=== PATIENT | female | born 1940 | race Caucasian/White ===

== ENCOUNTER 2017-05-16 09:25 | Inpatient (IN) | payer MEDICARE ==
[~2017-05-16] VITALS: Ht 165.1 cm; Wt 40.8 kg
[~2017-05-16 09:25] MED LIST: ASPI81CH PO; ATORVASTATIN CA10 MG PO; CLOP75 PO; CYCL10 PO; Hydrocodone-Ap1 EA23 PO; LISI20 PO; LISI5 PO; LOVA40; METO50 PO; Norco 5-325 Ta1 EACH PO; Ultram50 MG PO
[2017-05-16] MEDS ORDERED: ASPI81CH PO (09:54)
[2017-05-16] MEDS ORDERED: MAGOXI400 PO (09:54)
[2017-05-16] MEDS ORDERED: CHOL10002 PO (09:58)
[2017-05-16 09:59] LABS: BASOPHILS ABSOLUTE AUTO 0.03 K/mm3 (0.00-0.23); BASOPHILS PERCENT AUTO 0 % (0-2); EOSINOPHILS ABSOLUTE AUTO 0.03 K/mm3 (0.00-0.68); EOSINOPHILS PERCENT AUTO 0 % (0-6); Hematocrit 38.8 % (33.0-51.0); IMMATURE GRAN ABSOLUTE AUTO 0.08 K/mm3 (0.00-0.10); IMMATURE GRAN PERCENT AUTO 1 % (0-1); LYMPHOCYTES ABSOLUTE AUTO 1.34 K/mm3 (0.84-5.20); LYMPHOCYTES PERCENT AUTO 11 % (21-46); MONOCYTES ABSOLUTE AUTO 1.64 K/mm3 (0.16-1.47); MONOCYTES PERCENT AUTO 13 % (4-13); Mean Corpuscular HGB 32.2 pg (26.0-34.0); Mean Corpuscular HGB Conc 33.5 g/dL (31.5-36.5); Mean Corpuscular Volume 96 fL (80-100); NEUTROPHILS PERCENT AUTO 76 % (41-73); Platelet Count 373 K/mm3 (150-400); RDW Coefficient Variation 12.8 % (11.7-14.2); RDW Standard Deviation 45.8 fL (35.1-46.3); Red Blood Cell Count 4.04 M/mm3 (3.80-5.20); White Blood Cell Count 12.72 K/mm3 (4.00-11.30)
[2017-05-16 10:15] LABS: Alanine Aminotransfer (ALT/SGP 11 U/L (12-78); Albumin, Blood 2.9 g/dL (3.4-5.0); Albumin/Globulin Ratio 0.6 (0.8-1.8); Alk Phos 74 U/L (50-136); Anion Gap 10 mmol/L (6-16); Aspartate Aminotrans (AST/SGOT 16 U/L (12-37); Blood Urea Nitrogen 24 mg/dL (8-24); Bun/Creatinine Ratio 29.1 (12.0-20.0); CO2, Blood 30 mmol/L (21-32); Calcium, Blood 9.3 mg/dL (8.5-10.1); Chloride, Blood 87 mmol/L (98-108); Creatinine, Blood 0.83 mg/dL (0.40-1.00); Globulin, Blood 4.6 g/dL (2.2-4.0); Glomerular Filtration Rate >60 (60-); Glucose, Blood 121 mg/dL (70-99); Potassium, Blood 4.2 mmol/L (3.5-5.5); Sodium, Blood 127 mmol/L (136-145); Total Protein, Blood 7.5 g/dL (6.4-8.2); Troponin I <0.015 ng/mL (0.000-0.040)
[2017-05-16] MEDS ORDERED: Hair, Skin & N1 EACH PO (16:16)
[2017-05-16] MEDS ORDERED: CALCIUM 500 +1 EAC4 PO (16:20)
[2017-05-17 02:39] LABS: Source, Urine Voided
[2017-05-17 02:41] LABS: Bilirubin, Urine Neg (Neg); Blood, Urine Neg (Neg); Glucose Qualitative, Urine Neg (Neg); Ketones, Urine 1+ (Neg); Leukocyte Esterase, Urine 1+ (Neg); Nitrite, Urine Neg (Neg); Protein, Urine Neg (Neg); Urobilinogen, Urine NORM (Normal)
[2017-05-17 02:42] LABS: Appearance, Urine Clear (Clear); Color, Urine Yellow (P-Yellow)
[2017-05-17 02:47] LABS: Bacteria Few /hpf; Red Blood Cells, Urine Not Seen /hpf (0-2); Squamous Epithelial Cells Rare /hpf (Few)
[2017-05-17 06:28] LABS: BASOPHILS ABSOLUTE AUTO 0.02 K/mm3 (0.00-0.23); BASOPHILS PERCENT AUTO 0 % (0-2); EOSINOPHILS ABSOLUTE AUTO 0.19 K/mm3 (0.00-0.68); EOSINOPHILS PERCENT AUTO 2 % (0-6); Hematocrit 35.3 % (33.0-51.0); Hemoglobin 11.4 g/dL (11.5-16.0); IMMATURE GRAN ABSOLUTE AUTO 0.05 K/mm3 (0.00-0.10); IMMATURE GRAN PERCENT AUTO 1 % (0-1); LYMPHOCYTES ABSOLUTE AUTO 1.27 K/mm3 (0.84-5.20); LYMPHOCYTES PERCENT AUTO 16 % (21-46); MONOCYTES ABSOLUTE AUTO 1.09 K/mm3 (0.16-1.47); MONOCYTES PERCENT AUTO 13 % (4-13); Mean Corpuscular HGB 31.6 pg (26.0-34.0); Mean Corpuscular HGB Conc 32.3 g/dL (31.5-36.5); Mean Corpuscular Volume 98 fL (80-100); Mean Platelet Volume 9.2 fL (9.1-12.4); NEUTROPHILS ABSOLUTE AUTO 5.56 K/mm3 (1.96-9.15); NEUTROPHILS PERCENT AUTO 68 % (41-73); Platelet Count 310 K/mm3 (150-400); RDW Standard Deviation 47.1 fL (35.1-46.3); Red Blood Cell Count 3.61 M/mm3 (3.80-5.20); White Blood Cell Count 8.18 K/mm3 (4.00-11.30)
[2017-05-17 07:04] LABS: Alanine Aminotransfer (ALT/SGP 10 U/L (12-78); Albumin/Globulin Ratio 0.5 (0.8-1.8); Alk Phos 59 U/L (50-136); Anion Gap 6 mmol/L (6-16); Aspartate Aminotrans (AST/SGOT 15 U/L (12-37); Bilirubin, Total 0.2 mg/dL (0.1-1.0); Blood Urea Nitrogen 19 mg/dL (8-24); Bun/Creatinine Ratio 26.2 (12.0-20.0); CO2, Blood 30 mmol/L (21-32); Chloride, Blood 99 mmol/L (98-108); Creatinine, Blood 0.72 mg/dL (0.40-1.00); Globulin, Blood 3.9 g/dL (2.2-4.0); Glomerular Filtration Rate >60 (60-); Glucose, Blood 144 mg/dL (70-99); Potassium, Blood 3.7 mmol/L (3.5-5.5); Sodium, Blood 135 mmol/L (136-145); Total Protein, Blood 5.9 g/dL (6.4-8.2)
[2017-05-18 05:47] LABS: BASOPHILS ABSOLUTE AUTO 0.03 K/mm3 (0.00-0.23); BASOPHILS PERCENT AUTO 0 % (0-2); EOSINOPHILS ABSOLUTE AUTO 0.29 K/mm3 (0.00-0.68); EOSINOPHILS PERCENT AUTO 4 % (0-6); Hematocrit 32.3 % (33.0-51.0); Hemoglobin 10.3 g/dL (11.5-16.0); IMMATURE GRAN ABSOLUTE AUTO 0.04 K/mm3 (0.00-0.10); IMMATURE GRAN PERCENT AUTO 1 % (0-1); LYMPHOCYTES ABSOLUTE AUTO 1.44 K/mm3 (0.84-5.20); LYMPHOCYTES PERCENT AUTO 20 % (21-46); MONOCYTES ABSOLUTE AUTO 0.77 K/mm3 (0.16-1.47); MONOCYTES PERCENT AUTO 11 % (4-13); Mean Corpuscular HGB 31.7 pg (26.0-34.0); Mean Corpuscular HGB Conc 31.9 g/dL (31.5-36.5); Mean Corpuscular Volume 99 fL (80-100); Mean Platelet Volume 8.9 fL (9.1-12.4); NEUTROPHILS ABSOLUTE AUTO 4.77 K/mm3 (1.96-9.15); NEUTROPHILS PERCENT AUTO 65 % (41-73); Platelet Count 277 K/mm3 (150-400); RDW Standard Deviation 47.4 fL (35.1-46.3); Red Blood Cell Count 3.25 M/mm3 (3.80-5.20); White Blood Cell Count 7.34 K/mm3 (4.00-11.30)
[2017-05-18 06:11] LABS: Magnesium, Blood 1.5 mg/dL (1.6-2.4)
[2017-05-18 06:18] LABS: Anion Gap 4 mmol/L (6-16); Blood Urea Nitrogen 11 mg/dL (8-24); Bun/Creatinine Ratio 14.5 (12.0-20.0); CO2, Blood 31 mmol/L (21-32); Chloride, Blood 104 mmol/L (98-108); Creatinine, Blood 0.76 mg/dL (0.40-1.00); Glomerular Filtration Rate >60 (60-); Glucose, Blood 94 mg/dL (70-99); Potassium, Blood 4.1 mmol/L (3.5-5.5); Sodium, Blood 139 mmol/L (136-145)
[2017-05-19 05:15] LABS: BASOPHILS ABSOLUTE AUTO 0.02 K/mm3 (0.00-0.23); BASOPHILS PERCENT AUTO 0 % (0-2); EOSINOPHILS ABSOLUTE AUTO 0.33 K/mm3 (0.00-0.68); EOSINOPHILS PERCENT AUTO 4 % (0-6); Hematocrit 33.8 % (33.0-51.0); Hemoglobin 10.9 g/dL (11.5-16.0); IMMATURE GRAN ABSOLUTE AUTO 0.05 K/mm3 (0.00-0.10); IMMATURE GRAN PERCENT AUTO 1 % (0-1); LYMPHOCYTES PERCENT AUTO 20 % (21-46); MONOCYTES PERCENT AUTO 9 % (4-13); Mean Corpuscular HGB Conc 32.2 g/dL (31.5-36.5); Mean Corpuscular Volume 99 fL (80-100); Mean Platelet Volume 9.1 fL (9.1-12.4); NEUTROPHILS ABSOLUTE AUTO 4.82 K/mm3 (1.96-9.15); NEUTROPHILS PERCENT AUTO 65 % (41-73); Platelet Count 317 K/mm3 (150-400); RDW Standard Deviation 47.1 fL (35.1-46.3); Red Blood Cell Count 3.41 M/mm3 (3.80-5.20); White Blood Cell Count 7.42 K/mm3 (4.00-11.30)
[2017-05-19 05:34] LABS: Anion Gap 2 mmol/L (6-16); Blood Urea Nitrogen 12 mg/dL (8-24); Bun/Creatinine Ratio 17.9 (12.0-20.0); CO2, Blood 34 mmol/L (21-32); Calcium, Blood 8.5 mg/dL (8.5-10.1); Chloride, Blood 102 mmol/L (98-108); Creatinine, Blood 0.67 mg/dL (0.40-1.00); Glomerular Filtration Rate >60 (60-); Glucose, Blood 96 mg/dL (70-99); Magnesium, Blood 1.7 mg/dL (1.6-2.4); Sodium, Blood 138 mmol/L (136-145)
[2017-05-19] MEDS ORDERED: ALBU90OI INH (14:09)
[2017-05-19] MEDS ORDERED: LEVO750 PO (14:09)
[2017-05-19] MEDS ORDERED: DULERA 100 MCG/13 GM INH (14:10)
[2017-05-19] MEDS ORDERED: FAMO20 PO (14:13)
[2017-05-19] MEDS ORDERED: GUAI600T33 PO (14:13)
[2017-05-19] MEDS ORDERED: ERGO400 PO (14:14)
== END 2017-05-19 14:31 | disposition home or self-care (01) | DRG 205 ==
LOC: ER 09:25 → MEDS 12:06 → ENPENDDIS 05-19 10:30 → MEDS 05-19 14:31
PROVIDERS: Emergency Medicine; Internal Medicine
DX: J98.19 Other pulmonary collapse (principal); J18.1 Lobar pneumonia, unspecified organism; G93.41 Metabolic encephalopathy; I11.0 Hypertensive heart disease with heart failure; I50.30 Unspecified diastolic (congestive) heart failure; Z99.81 Dependence on supplemental oxygen; J90 Pleural effusion, not elsewhere classified; E87.1 Hypo-osmolality and hyponatremia; J44.9 Chronic obstructive pulmonary disease, unspecified; F17.211 Nicotine dependence, cigarettes, in remission; I25.10 Atherosclerotic heart disease of native coronary artery without angina pectoris; R41.82 Altered mental status, unspecified; Z79.82 Long term (current) use of aspirin
CPT/HCPCS: 36415; 71045; 71046; 71260; 80048; 80053; 81001; 83520; 83735; 84484; 85025; 87070; 87086; 87205; 87449; 87493; 93005; 93010; 94640; 94667; 94668; 94760; 96361; 96365; 99285; J0456; J0696; J1650; J3475; J7030; J7050; Q9967

== ENCOUNTER 2017-12-30 06:25 | Inpatient (IN) | payer MEDICARE ==
[~2017-12-30] VITALS: Ht 157.5 cm; Wt 45.2 kg
[~2017-12-30 06:25] MED LIST changes: +ALBU90OI INH; +CALCIUM 500 +1 EAC4 PO; +CHOL10002 PO; +DULERA 100 MCG/13 GM INH; +ERGO400 PO; +FAMO20 PO; +GUAI600T33 PO; +Hair, Skin & N1 EACH PO; +LEVO750 PO; +MAGOXI400 PO
[2017-12-30 06:45] LABS: Calcium, Ionized (POC) 1.18 mmol/L (1.10-1.46); Chloride (POC) 90 mmol/L (98-108); Glucose (ISTAT POC) 250 mg/dL (70-99); Hemoglobin (POC) 15.6 g/dL (12.0-16.0); Potassium (POC) 4.7 mmol/L (3.5-5.5); Sodium (POC) 132 mmol/L (135-148); Total CO2 (POC) 36 mmol/L (21-32)
[2017-12-30 06:52] LABS: Source, Urine Catheter
[2017-12-30 07:03] LABS: BASOPHILS ABSOLUTE AUTO 0.07 K/mm3 (0.00-0.23); BASOPHILS PERCENT AUTO 0 % (0-2); EOSINOPHILS ABSOLUTE AUTO 0.15 K/mm3 (0.00-0.68); EOSINOPHILS PERCENT AUTO 1 % (0-6); Hematocrit 44.7 % (33.0-51.0); Hemoglobin 14.2 g/dL (11.5-16.0); IMMATURE GRAN ABSOLUTE AUTO 0.11 K/mm3 (0.00-0.10); IMMATURE GRAN PERCENT AUTO 1 % (0-1); LYMPHOCYTES ABSOLUTE AUTO 3.35 K/mm3 (0.84-5.20); LYMPHOCYTES PERCENT AUTO 21 % (21-46); MONOCYTES PERCENT AUTO 9 % (4-13); Mean Corpuscular HGB 32.5 pg (26.0-34.0); Mean Corpuscular HGB Conc 31.8 g/dL (31.5-36.5); Mean Corpuscular Volume 102 fL (80-100); Mean Platelet Volume 9.3 fL (9.1-12.4); NEUTROPHILS PERCENT AUTO 68 % (41-73); Platelet Count 243 K/mm3 (150-400); RDW Coefficient Variation 12.5 % (11.7-14.2); RDW Standard Deviation 47.4 fL (35.1-46.3); Red Blood Cell Count 4.37 M/mm3 (3.80-5.20); White Blood Cell Count 15.98 K/mm3 (4.00-11.30)
[2017-12-30 07:19] LABS: Alanine Aminotransfer (ALT/SGP 33 U/L (12-78); Albumin, Blood 3.6 g/dL (3.4-5.0); Albumin/Globulin Ratio 0.9 (0.8-1.8); Alk Phos 69 U/L (50-136); Anion Gap 4 mmol/L (6-16); Aspartate Aminotrans (AST/SGOT 49 U/L (12-37); Bilirubin, Total 0.6 mg/dL (0.1-1.0); Blood Urea Nitrogen 17 mg/dL (8-24); Bun/Creatinine Ratio 18.1 (12.0-20.0); CO2, Blood 37 mmol/L (21-32); Calcium, Blood 8.8 mg/dL (8.5-10.1); Chloride, Blood 92 mmol/L (98-108); Creatinine, Blood 0.94 mg/dL (0.40-1.00); Globulin, Blood 3.8 g/dL (2.2-4.0); Glomerular Filtration Rate >60 (60-); Glucose, Blood 252 mg/dL (70-99); Potassium, Blood 5.2 mmol/L (3.5-5.5); Sodium, Blood 133 mmol/L (136-145); Total Protein, Blood 7.4 g/dL (6.4-8.2); Troponin I 0.017 ng/mL (0.000-0.040)
[2017-12-30 07:29] LABS: Bilirubin, Urine Neg (Neg); Blood, Urine Neg (Neg); Glucose Qualitative, Urine 1+ (Neg); Ketones, Urine Neg (Neg); Leukocyte Esterase, Urine Neg (Neg); Nitrite, Urine Neg (Neg); Protein, Urine 2+ (Neg); Specific Gravity, Urine 1.025 (1.003-1.022); Urobilinogen, Urine NORM (Normal)
[2017-12-30 07:40] LABS: Appearance, Urine Hazy (Clear); Color, Urine Yellow (P-Yellow)
[2017-12-30 07:45] LABS: Bacteria Mod /hpf; Red Blood Cells, Urine 0-2 /hpf (0-2); Squamous Epithelial Cells Many /hpf (Few)
[2017-12-30 07:47] LABS: Amorphous Mod (0-Heavy)
[2017-12-30 07:58] LABS: PCO2 Arterial 61.2 mmHg (35-45); PO2 Arterial 68.4 mmHg (80-100); pH Blood Arterial 7.33 (7.35-7.45)
[2017-12-30] MEDS ORDERED: ASPI81CH PO (08:03)
[2017-12-30] MEDS ORDERED: MAGOXI400 PO (08:04)
[2017-12-30] MEDS ORDERED: METO50 PO (08:04)
[2017-12-30] MEDS ORDERED: Hair, Skin & N1 EACH PO (08:05)
[2017-12-30] MEDS ORDERED: CHOL10002 (08:06)
[2017-12-30] MEDS ORDERED: Allergy Medicat25 MG PO (08:10)
[2017-12-30] MEDS ORDERED: COMBIVENT RESPIM4 GM INH (08:11)
[2017-12-30] MEDS ORDERED: BUDE.25 NEB (08:11)
[2017-12-30 08:34] LABS: Influenza A Negative (NEGATIVE); Influenza B Negative (NEGATIVE)
[2017-12-30] MEDS ORDERED: MONT10T PO (09:10)
[2017-12-30] MEDS ORDERED: LISI20 PO (09:10)
[2017-12-30] MEDS ORDERED: FAMO20 PO (09:10)
[2017-12-31 02:13] LABS: BASOPHILS PERCENT AUTO 0 % (0-2); EOSINOPHILS PERCENT AUTO 0 % (0-6); Hematocrit 33.8 % (33.0-51.0); Hemoglobin 11.3 g/dL (11.5-16.0); IMMATURE GRAN ABSOLUTE AUTO 0.03 K/mm3 (0.00-0.10); IMMATURE GRAN PERCENT AUTO 0 % (0-1); LYMPHOCYTES ABSOLUTE AUTO 0.27 K/mm3 (0.84-5.20); LYMPHOCYTES PERCENT AUTO 3 % (21-46); MONOCYTES ABSOLUTE AUTO 0.25 K/mm3 (0.16-1.47); MONOCYTES PERCENT AUTO 3 % (4-13); Mean Corpuscular HGB 33.2 pg (26.0-34.0); Mean Corpuscular HGB Conc 33.4 g/dL (31.5-36.5); NEUTROPHILS ABSOLUTE AUTO 7.52 K/mm3 (1.96-9.15); NEUTROPHILS PERCENT AUTO 93 % (41-73); Platelet Count 141 K/mm3 (150-400); RDW Coefficient Variation 12.6 % (11.7-14.2); White Blood Cell Count 8.07 K/mm3 (4.00-11.30)
[2017-12-31 02:15] LABS: Mean Corpuscular Volume 99 fL (80-100)
[2017-12-31 02:31] LABS: Alanine Aminotransfer (ALT/SGP 23 U/L (12-78); Albumin, Blood 2.8 g/dL (3.4-5.0); Alk Phos 45 U/L (50-136); Anion Gap 15 mmol/L (6-16); Aspartate Aminotrans (AST/SGOT 29 U/L (12-37); Bilirubin, Total 0.2 mg/dL (0.1-1.0); Blood Urea Nitrogen 18 mg/dL (8-24); Bun/Creatinine Ratio 21.7 (12.0-20.0); CO2, Blood 24 mmol/L (21-32); Calcium, Blood 7.9 mg/dL (8.5-10.1); Chloride, Blood 98 mmol/L (98-108); Creatinine, Blood 0.83 mg/dL (0.40-1.00); Globulin, Blood 2.9 g/dL (2.2-4.0); Glomerular Filtration Rate >60 (60-); Glucose, Blood 168 mg/dL (70-99); Magnesium, Blood 1.9 mg/dL (1.6-2.4); Phosphorus, Blood 2.2 mg/dL (2.5-4.9); Potassium, Blood 3.6 mmol/L (3.5-5.5); Sodium, Blood 137 mmol/L (136-145); Total Protein, Blood 5.7 g/dL (6.4-8.2)
[2017-12-31 05:44] LABS: PO2 Arterial 87.2 mmHg (80-100); pH Blood Arterial 7.33 (7.35-7.45)
[2018-01-01 03:53] LABS: BASOPHILS ABSOLUTE AUTO 0.01 K/mm3 (0.00-0.23); BASOPHILS PERCENT AUTO 0 % (0-2); EOSINOPHILS PERCENT AUTO 0 % (0-6); Hematocrit 36.5 % (33.0-51.0); Hemoglobin 12.7 g/dL (11.5-16.0); IMMATURE GRAN PERCENT AUTO 2 % (0-1); LYMPHOCYTES ABSOLUTE AUTO 0.21 K/mm3 (0.84-5.20); LYMPHOCYTES PERCENT AUTO 1 % (21-46); MONOCYTES ABSOLUTE AUTO 0.54 K/mm3 (0.16-1.47); MONOCYTES PERCENT AUTO 3 % (4-13); Mean Corpuscular HGB 33.5 pg (26.0-34.0); Mean Corpuscular HGB Conc 34.8 g/dL (31.5-36.5); Mean Platelet Volume 9.1 fL (9.1-12.4); NEUTROPHILS ABSOLUTE AUTO 15.14 K/mm3 (1.96-9.15); NEUTROPHILS PERCENT AUTO 93 % (41-73); Platelet Count 170 K/mm3 (150-400); RDW Coefficient Variation 13.1 % (11.7-14.2); RDW Standard Deviation 46.7 fL (35.1-46.3); Red Blood Cell Count 3.79 M/mm3 (3.80-5.20)
[2018-01-01 03:55] LABS: Mean Corpuscular Volume 96 fL (80-100)
[2018-01-01 04:11] LABS: Alanine Aminotransfer (ALT/SGP 23 U/L (12-78); Albumin, Blood 2.9 g/dL (3.4-5.0); Albumin/Globulin Ratio 0.9 (0.8-1.8); Alk Phos 49 U/L (50-136); Anion Gap 8 mmol/L (6-16); Aspartate Aminotrans (AST/SGOT 28 U/L (12-37); Bilirubin, Total 0.4 mg/dL (0.1-1.0); Blood Urea Nitrogen 23 mg/dL (8-24); Bun/Creatinine Ratio 27.8 (12.0-20.0); CO2, Blood 29 mmol/L (21-32); Calcium, Blood 8.1 mg/dL (8.5-10.1); Chloride, Blood 99 mmol/L (98-108); Creatinine, Blood 0.83 mg/dL (0.40-1.00); Globulin, Blood 3.3 g/dL (2.2-4.0); Glomerular Filtration Rate >60 (60-); Glucose, Blood 175 mg/dL (70-99); Phosphorus, Blood 2.5 mg/dL (2.5-4.9); Potassium, Blood 4.3 mmol/L (3.5-5.5); Sodium, Blood 136 mmol/L (136-145); Total Protein, Blood 6.2 g/dL (6.4-8.2)
[2018-01-03 05:27] LABS: BASOPHILS ABSOLUTE AUTO 0.02 K/mm3 (0.00-0.23); BASOPHILS PERCENT AUTO 0 % (0-2); EOSINOPHILS PERCENT AUTO 0 % (0-6); Hematocrit 37.3 % (33.0-51.0); Hemoglobin 12.5 g/dL (11.5-16.0); IMMATURE GRAN ABSOLUTE AUTO 0.12 K/mm3 (0.00-0.10); IMMATURE GRAN PERCENT AUTO 1 % (0-1); LYMPHOCYTES ABSOLUTE AUTO 0.41 K/mm3 (0.84-5.20); LYMPHOCYTES PERCENT AUTO 2 % (21-46); MONOCYTES ABSOLUTE AUTO 0.83 K/mm3 (0.16-1.47); MONOCYTES PERCENT AUTO 5 % (4-13); Mean Corpuscular HGB 33.3 pg (26.0-34.0); Mean Corpuscular HGB Conc 33.5 g/dL (31.5-36.5); Mean Platelet Volume 9.2 fL (9.1-12.4); NEUTROPHILS ABSOLUTE AUTO 17.12 K/mm3 (1.96-9.15); NEUTROPHILS PERCENT AUTO 93 % (41-73); Platelet Count 197 K/mm3 (150-400); RDW Coefficient Variation 13.2 % (11.7-14.2); RDW Standard Deviation 48.7 fL (35.1-46.3); Red Blood Cell Count 3.75 M/mm3 (3.80-5.20)
[2018-01-03 05:28] LABS: Mean Corpuscular Volume 100 fL (80-100)
[2018-01-03 05:49] LABS: Alanine Aminotransfer (ALT/SGP 31 U/L (12-78); Albumin, Blood 2.8 g/dL (3.4-5.0); Alk Phos 46 U/L (50-136); Anion Gap 6 mmol/L (6-16); Aspartate Aminotrans (AST/SGOT 33 U/L (12-37); Bilirubin, Total 0.3 mg/dL (0.1-1.0); Blood Urea Nitrogen 27 mg/dL (8-24); Bun/Creatinine Ratio 35.2 (12.0-20.0); CO2, Blood 32 mmol/L (21-32); Calcium, Blood 8.2 mg/dL (8.5-10.1); Chloride, Blood 99 mmol/L (98-108); Creatinine, Blood 0.77 mg/dL (0.40-1.00); Globulin, Blood 2.9 g/dL (2.2-4.0); Glomerular Filtration Rate >60 (60-); Glucose, Blood 142 mg/dL (70-99); Potassium, Blood 4.7 mmol/L (3.5-5.5); Sodium, Blood 137 mmol/L (136-145); Total Protein, Blood 5.7 g/dL (6.4-8.2)
[2018-01-05 05:23] LABS: Hemoglobin 12.2 g/dL (11.5-16.0); Mean Corpuscular HGB 32.9 pg (26.0-34.0); Mean Corpuscular Volume 100 fL (80-100); Mean Platelet Volume 9.2 fL (9.1-12.4); Platelet Count 200 K/mm3 (150-400); RDW Coefficient Variation 12.9 % (11.7-14.2); RDW Standard Deviation 47.3 fL (35.1-46.3); Red Blood Cell Count 3.71 M/mm3 (3.80-5.20); White Blood Cell Count 8.85 K/mm3 (4.00-11.30)
[2018-01-05 05:44] LABS: Alanine Aminotransfer (ALT/SGP 47 U/L (12-78); Albumin, Blood 2.7 g/dL (3.4-5.0); Alk Phos 42 U/L (50-136); Anion Gap 4 mmol/L (6-16); Aspartate Aminotrans (AST/SGOT 34 U/L (12-37); Bilirubin, Total 0.4 mg/dL (0.1-1.0); Blood Urea Nitrogen 22 mg/dL (8-24); Bun/Creatinine Ratio 27.4 (12.0-20.0); CO2, Blood 37 mmol/L (21-32); Calcium, Blood 8.4 mg/dL (8.5-10.1); Chloride, Blood 98 mmol/L (98-108); Globulin, Blood 2.8 g/dL (2.2-4.0); Glomerular Filtration Rate >60 (60-); Glucose, Blood 88 mg/dL (70-99); Sodium, Blood 139 mmol/L (136-145); Total Protein, Blood 5.5 g/dL (6.4-8.2)
[2018-01-06] MEDS ORDERED: DOCU100 PO (12:16)
[2018-01-06] MEDS ORDERED: FOLI1 PO (12:16)
[2018-01-06] MEDS ORDERED: Prednisone20 MG PO (12:17)
[2018-01-06] MEDS ORDERED: QUETIAPINE FUMA50 MG PO (12:18)
[2018-01-06] MEDS ORDERED: THIA100 PO (12:19)
[2018-01-06] MEDS ORDERED: ALUM-MAG HYDRO360 ML PO (12:21)
[2018-01-06] MEDS ORDERED: GAVILAX17 GM PO (12:21)
== END 2018-01-06 13:07 | disposition home or self-care (01) | DRG 871 ==
LOC: ER 06:25 → ICUW 09:49 → ICUE 10:11 → PCU 01-03 09:02 → MEDS 01-04 16:29 → ENPENDDIS 01-06 10:57 → MEDS 01-06 13:07
PROVIDERS: Emergency Medicine; Internal Medicine; Internal Medicine Critical Care Medicine; Internal Medicine Pulmonary Disease
PROC: 0BH17EZ Insertion of Endotracheal Airway into Trachea, Via Natural or Artificial Opening (ICD-10-PCS; principal; 2017-12-30)
PROC: 5A1945Z Respiratory Ventilation, 24-96 Consecutive Hours (ICD-10-PCS; 2017-12-30)
DX: A41.9 Sepsis, unspecified organism (principal); G93.41 Metabolic encephalopathy; J96.22 Acute and chronic respiratory failure with hypercapnia; J96.21 Acute and chronic respiratory failure with hypoxia; E87.1 Hypo-osmolality and hyponatremia; J44.0 Chronic obstructive pulmonary disease with (acute) lower respiratory infection; K55.9 Vascular disorder of intestine, unspecified; F03.91 Unspecified dementia, unspecified severity, with behavioral disturbance; F05 Delirium due to known physiological condition; J44.1 Chronic obstructive pulmonary disease with (acute) exacerbation; E87.8 Other disorders of electrolyte and fluid balance, not elsewhere classified; I10 Essential (primary) hypertension; I25.10 Atherosclerotic heart disease of native coronary artery without angina pectoris; R65.20 Severe sepsis without septic shock; E78.5 Hyperlipidemia, unspecified; Z87.01 Personal history of pneumonia (recurrent); R73.9 Hyperglycemia, unspecified; F10.20 Alcohol dependence, uncomplicated; Z98.61 Coronary angioplasty status; Z87.891 Personal history of nicotine dependence; I73.9 Peripheral vascular disease, unspecified; J43.9 Emphysema, unspecified; K59.00 Constipation, unspecified; L89.151 Pressure ulcer of sacral region, stage 1
CPT/HCPCS: 31500; 31720; 36415; 36600; 51702; 70450; 71045; 74177; 76857; 80047; 80053; 81001; 82803; 82947; 83735; 83880; 84100; 84484; 85014; 85025; 85027; 87070; 87086; 87205; 87804; 93005; 93010; 93306; 94002; 94003; 94640; 94644; 94660; 94760; 94761; 96374; 96375; 97110; 97162; 97166; 97530; 99291-25; 99292; C9113; G8978; G8979; G8987; G8988; J0330; J0360; J0456; J0696; J1650; J2060; J2920; J2930; J3010; J3411; J3475; J7030; J7042; J7050; J7060; J7120; Q9967

== ENCOUNTER 2020-11-02 18:24 | Inpatient (IN) | payer OTHER, MEDICARE ==
[~2020-11-02] VITALS: Ht 160 cm; Wt 43.8 kg
[~2020-11-02 18:24] MED LIST changes: +ALUM-MAG HYDRO360 ML PO; +Allergy Medicat25 MG PO; +Aspir 8181 MG PO; +BUDE.25 NEB; +COMBIVENT RESPIM4 GM INH; +DOCU100 PO; +FOLI1 PO; +MIRALAX17 GM PO; +MONT10T PO; +Prednisone20 MG PO; +QUETIAPINE FUMA50 MG PO; +THIA100 PO; +VITAMIN D31000 UNI1 PO
[2020-11-02 19:07] LABS: BASOPHILS ABSOLUTE AUTO 0.04 K/mm3 (0.00-0.23); BASOPHILS PERCENT AUTO 0 % (0-2); EOSINOPHILS PERCENT AUTO 1 % (0-6); Hematocrit 39.1 % (33.0-51.0); Hemoglobin 12.8 g/dL (11.5-16.0); IMMATURE GRAN ABSOLUTE AUTO 0.04 K/mm3 (0.00-0.10); IMMATURE GRAN PERCENT AUTO 0 % (0-1); LYMPHOCYTES ABSOLUTE AUTO 1.72 K/mm3 (0.84-5.20); LYMPHOCYTES PERCENT AUTO 19 % (21-46); MONOCYTES ABSOLUTE AUTO 1.39 K/mm3 (0.16-1.47); MONOCYTES PERCENT AUTO 15 % (4-13); Mean Corpuscular HGB 32.3 pg (26.0-34.0); Mean Corpuscular HGB Conc 32.7 g/dL (31.5-36.5); Mean Corpuscular Volume 99 fL (80-100); Mean Platelet Volume 8.3 fL (9.1-12.4); NEUTROPHILS ABSOLUTE AUTO 5.76 K/mm3 (1.96-9.15); NEUTROPHILS PERCENT AUTO 64 % (41-73); Platelet Count 339 K/mm3 (150-400); RDW Coefficient Variation 13.2 % (11.7-14.2); RDW Standard Deviation 47.9 fL (35.1-46.3); Red Blood Cell Count 3.96 M/mm3 (3.80-5.20); White Blood Cell Count 9.05 K/mm3 (4.00-11.30)
[2020-11-02] MEDS ORDERED: ATOR20 PO (19:12)
[2020-11-02 19:38] LABS: Alanine Aminotransfer (ALT/SGP 14 U/L (12-78); Albumin, Blood 3.2 g/dL (3.4-5.0); Albumin/Globulin Ratio 0.8 (0.8-1.8); Alk Phos 87 U/L (50-136); Anion Gap 2 mmol/L (6-16); Aspartate Aminotrans (AST/SGOT 17 U/L (12-37); Bilirubin, Total 0.4 mg/dL (0.1-1.0); Blood Urea Nitrogen 12 mg/dL (8-24); CO2, Blood 36 mmol/L (21-32); Calcium, Blood 8.9 mg/dL (8.5-10.1); Chloride, Blood 89 mmol/L (98-108); Creatinine, Blood 1.09 mg/dL (0.40-1.00); Globulin, Blood 4.2 g/dL (2.2-4.0); Glomerular Filtration Rate 48 (60-); Glucose, Blood 128 mg/dL (70-99); Potassium, Blood 4.5 mmol/L (3.5-5.5); Sodium, Blood 127 mmol/L (136-145); Total Protein, Blood 7.4 g/dL (6.4-8.2); Troponin I <0.015 ng/mL (0.000-0.040)
[2020-11-02] MEDS ORDERED: Prinivil10 MG PO (21:12)
[2020-11-02] MEDS ORDERED: Ventolin/Prove6.7 GM INH (21:12)
[2020-11-02 21:35] LABS: Base Excess Venous 10.4 mmol/L; Bicarbonate Venous 30.8 mmol/L (24.0-30.0); PCO2 Venous 80.1 mmHg (38-42); pH Blood Venous 7.28 (7.34-7.37)
--- NOTE | 2020-11-03 03:56 | NUR ---
SHIFT SUMMARY PT ER ADMIT THIS SHIFT FOR COPD EXAC. PT ARRIVED TO UNIT ON BIPAP, SATS MAINTAINED WNL ON BIPAP. LUNGS ARE DIMINISHED T/O. PT DENIES SOB. RESP E/U AT REST, SOB WITH EXERTION. IV ANTIBIOTICS, SOLUMEDROL AND FLUIDS ADMINISTERED ORDERED. PT IS A/OX3-4 BUT HAS PERIODS OF FORGETFULNESS AND CONFUSION. PT WILL TALK TO STAFF AND SEEM A/O AND THEN WITHIN A SHORT PERIOD OF TIME SEEM CONFUSED IF SHE IS HAVING A HARD TIME UNDERSTADING THE QUESTIONS BEING ASKED. POOR HISTORIAN A RESULT MOST OF MEDICAL HX PULLED FROM PCI. PT HAS A STAGE 1 PRESSURE SORE TO COCCYX, PICTURE TAKEN AND PLACED IN CHART. VITALS ARE STABLE. ADMISSION COMPLETE ASIDE FROM MED REC, NURSE NOTIFY PLACED FOR DAYSHIFT NURSE FOLLOW UP. BED IN LOWEST POSITION, CALL LIGHT WITHIN REACH. BED IN LOWEST POSITON, CALL LIGHT WITHIN REACH.
[2020-11-03 08:38] LABS: BASOPHILS ABSOLUTE AUTO 0.01 K/mm3 (0.00-0.23); BASOPHILS PERCENT AUTO 0 % (0-2); EOSINOPHILS PERCENT AUTO 0 % (0-6); Hematocrit 39.1 % (33.0-51.0); Hemoglobin 12.6 g/dL (11.5-16.0); IMMATURE GRAN ABSOLUTE AUTO 0.03 K/mm3 (0.00-0.10); IMMATURE GRAN PERCENT AUTO 0 % (0-1); LYMPHOCYTES ABSOLUTE AUTO 0.84 K/mm3 (0.84-5.20); LYMPHOCYTES PERCENT AUTO 11 % (21-46); MONOCYTES ABSOLUTE AUTO 0.05 K/mm3 (0.16-1.47); MONOCYTES PERCENT AUTO 1 % (4-13); Mean Corpuscular HGB 32.5 pg (26.0-34.0); Mean Corpuscular HGB Conc 32.2 g/dL (31.5-36.5); Mean Corpuscular Volume 101 fL (80-100); Mean Platelet Volume 8.5 fL (9.1-12.4); NEUTROPHILS ABSOLUTE AUTO 6.96 K/mm3 (1.96-9.15); NEUTROPHILS PERCENT AUTO 88 % (41-73); Platelet Count 318 K/mm3 (150-400); RDW Coefficient Variation 13.3 % (11.7-14.2); RDW Standard Deviation 49.2 fL (35.1-46.3); Red Blood Cell Count 3.88 M/mm3 (3.80-5.20); White Blood Cell Count 7.89 K/mm3 (4.00-11.30)
[2020-11-03 08:59] LABS: Bun/Creatinine Ratio 11.8 (12.0-20.0); Calcium, Blood 8.4 mg/dL (8.5-10.1); Creatinine, Blood 1.1 mg/dL (0.40-1.00)
[2020-11-03] MEDS ORDERED: AZIT250 PO (14:27)
[2020-11-03] MEDS ORDERED: PRED20 PO (14:29)
--- NOTE | 2020-11-03 17:10 | NUR ---
PT DISCHARGED 1530 WITH PORTABLE O2 TANK FROM [facility] [place] WITH PLAN FOR THEM TO DELIVER A CONCENTRATOR TO THE HOUSE THIS AFTERNOON. GIVEN DC ORDERS. W/C ESCORT OUT TO [facility].
== END 2020-11-03 15:30 | disposition home or self-care (01) | DRG 189 ==
LOC: ER 18:24 → MEDS 20:51
PROVIDERS: Internal Medicine; Physician Assistant; ADMIT Hospitalist
DX: J96.21 Acute and chronic respiratory failure with hypoxia (principal); G93.41 Metabolic encephalopathy; J44.1 Chronic obstructive pulmonary disease with (acute) exacerbation; E22.2 Syndrome of inappropriate secretion of antidiuretic hormone; N17.9 Acute kidney failure, unspecified; E87.3 Alkalosis; I13.0 Hypertensive heart and chronic kidney disease with heart failure and stage 1 through stage 4 chronic kidney disease, or unspecified chronic kidney disease; I50.32 Chronic diastolic (congestive) heart failure; J96.22 Acute and chronic respiratory failure with hypercapnia; J96.11 Chronic respiratory failure with hypoxia; N18.30 Chronic kidney disease, stage 3 unspecified; I25.10 Atherosclerotic heart disease of native coronary artery without angina pectoris; E11.22 Type 2 diabetes mellitus with diabetic chronic kidney disease; E78.5 Hyperlipidemia, unspecified; F10.20 Alcohol dependence, uncomplicated; M85.80 Other specified disorders of bone density and structure, unspecified site; I12.9 Hypertensive chronic kidney disease with stage 1 through stage 4 chronic kidney disease, or unspecified chronic kidney disease; I73.9 Peripheral vascular disease, unspecified; Z88.5 Allergy status to narcotic agent; Z88.8 Allergy status to other drugs, medicaments and biological substances; Z91.038 Other insect allergy status; Z87.891 Personal history of nicotine dependence; Z95.5 Presence of coronary angioplasty implant and graft; Z95.828 Presence of other vascular implants and grafts; Z98.890 Other specified postprocedural states; Z90.49 Acquired absence of other specified parts of digestive tract; Z79.82 Long term (current) use of aspirin; Z79.899 Other long term (current) drug therapy
CPT/HCPCS: 36415; 71046; 80048; 80053; 82803; 83036; 83880; 84484; 85025; 93005; 93010; 94640; 94660; 94761; 94762; 96374; 99285-25; A9270; J0456; J0696; J1650; J2930; J7040; J7050

== ENCOUNTER 2020-11-16 10:35 | Emergency (ER) | payer OTHER ==
[~2020-11-16] VITALS: Ht 160 cm; Wt 43.1 kg
[~2020-11-16 10:35] MED LIST changes: +ATOR20 PO; +AZIT250 PO; +PRED20 PO; +Prinivil10 MG PO; +Ventolin/Prove6.7 GM INH
[2020-11-16 11:07] LABS: BASOPHILS ABSOLUTE AUTO 0.07 K/mm3 (0.00-0.23); BASOPHILS PERCENT AUTO 1 % (0-2); EOSINOPHILS ABSOLUTE AUTO 0.21 K/mm3 (0.00-0.68); EOSINOPHILS PERCENT AUTO 2 % (0-6); Hematocrit 41.8 % (33.0-51.0); Hemoglobin 13.4 g/dL (11.5-16.0); IMMATURE GRAN ABSOLUTE AUTO 0.04 K/mm3 (0.00-0.10); IMMATURE GRAN PERCENT AUTO 0 % (0-1); LYMPHOCYTES ABSOLUTE AUTO 1.84 K/mm3 (0.84-5.20); LYMPHOCYTES PERCENT AUTO 17 % (21-46); MONOCYTES ABSOLUTE AUTO 0.87 K/mm3 (0.16-1.47); MONOCYTES PERCENT AUTO 8 % (4-13); Mean Corpuscular HGB 32.7 pg (26.0-34.0); Mean Corpuscular HGB Conc 32.1 g/dL (31.5-36.5); Mean Corpuscular Volume 102 fL (80-100); Mean Platelet Volume 9.1 fL (9.1-12.4); NEUTROPHILS ABSOLUTE AUTO 7.67 K/mm3 (1.96-9.15); NEUTROPHILS PERCENT AUTO 72 % (41-73); Platelet Count 280 K/mm3 (150-400); RDW Standard Deviation 48.6 fL (35.1-46.3)
[2020-11-16 11:34] LABS: Alanine Aminotransfer (ALT/SGP 21 U/L (12-78); Albumin, Blood 3.7 g/dL (3.4-5.0); Albumin/Globulin Ratio 0.9 (0.8-1.8); Alk Phos 71 U/L (50-136); Anion Gap 3 mmol/L (6-16); Aspartate Aminotrans (AST/SGOT 20 U/L (12-37); Bilirubin, Total 0.6 mg/dL (0.1-1.0); Blood Urea Nitrogen 14 mg/dL (8-24); Bun/Creatinine Ratio 14.5 (12.0-20.0); CO2, Blood 38 mmol/L (21-32); Calcium, Blood 9.9 mg/dL (8.5-10.1); Chloride, Blood 92 mmol/L (98-108); Creatinine, Blood 0.97 mg/dL (0.40-1.00); Globulin, Blood 3.9 g/dL (2.2-4.0); Glomerular Filtration Rate 55 (60-); Glucose, Blood 131 mg/dL (70-99); Potassium, Blood 4.5 mmol/L (3.5-5.5); Sodium, Blood 133 mmol/L (136-145); Total Protein, Blood 7.6 g/dL (6.4-8.2); Troponin I <0.015 ng/mL (0.000-0.040)
== END 2020-11-16 14:00 | disposition home or self-care (01) ==
LOC: ER 10:35
PROVIDERS: Physician Assistant
DX: R09.02 Hypoxemia (principal); J44.9 Chronic obstructive pulmonary disease, unspecified; I25.10 Atherosclerotic heart disease of native coronary artery without angina pectoris; I10 Essential (primary) hypertension; Z88.5 Allergy status to narcotic agent; Z79.82 Long term (current) use of aspirin; Z79.899 Other long term (current) drug therapy; Z87.891 Personal history of nicotine dependence; Z91.030 Bee allergy status
CPT/HCPCS: 36415; 71045; 80053; 83880; 84484; 85025; 93005; 93010; 99285-25

== ENCOUNTER 2021-10-19 16:25 | Emergency (ER) | payer OTHER ==
[~2021-10-19] VITALS: Ht 160 cm; Wt 51.7 kg
[~2021-10-19 16:25] MED LIST changes: +DOXY100 PO; +IPRAT-ALBUT 0.5-3 ML INH
[2021-10-19 17:41] LABS: Source, Urine Straight Cath
[2021-10-19 17:45] LABS: Appearance, Urine Clear (Clear); Bilirubin, Urine Neg (Neg); Blood, Urine Neg (Neg); Color, Urine Yellow (P-Yellow); Glucose Qualitative, Urine Neg (Neg); Ketones, Urine Neg (Neg); Leukocyte Esterase, Urine 1+ (Neg); Nitrite, Urine Pos (Neg); Protein, Urine 2+ (Neg); Specific Gravity, Urine 1.015 (1.003-1.022); Urobilinogen, Urine NORM (Normal)
[2021-10-19 17:47] LABS: BASOPHILS ABSOLUTE AUTO 0.04 K/mm3 (0.00-0.23); BASOPHILS PERCENT AUTO 0 % (0-2); EOSINOPHILS PERCENT AUTO 1 % (0-6); Hematocrit 41.5 % (33.0-51.0); Hemoglobin 13.5 g/dL (11.5-16.0); IMMATURE GRAN ABSOLUTE AUTO 0.03 K/mm3 (0.00-0.10); IMMATURE GRAN PERCENT AUTO 0 % (0-1); LYMPHOCYTES ABSOLUTE AUTO 0.61 K/mm3 (0.84-5.20); LYMPHOCYTES PERCENT AUTO 6 % (21-46); MONOCYTES ABSOLUTE AUTO 0.89 K/mm3 (0.16-1.47); MONOCYTES PERCENT AUTO 9 % (4-13); Mean Corpuscular HGB 31.8 pg (26.0-34.0); Mean Corpuscular HGB Conc 32.5 g/dL (31.5-36.5); Mean Corpuscular Volume 98 fL (80-100); Mean Platelet Volume 9.4 fL (9.1-12.4); NEUTROPHILS ABSOLUTE AUTO 7.92 K/mm3 (1.96-9.15); NEUTROPHILS PERCENT AUTO 83 % (41-73); Platelet Count 201 K/mm3 (150-400); RDW Coefficient Variation 12.9 % (11.7-14.2); Red Blood Cell Count 4.24 M/mm3 (3.80-5.20); White Blood Cell Count 9.59 K/mm3 (4.00-11.30)
[2021-10-19 17:52] LABS: Bacteria Many /hpf; Red Blood Cells, Urine 0-2 /hpf (0-2); Squamous Epithelial Cells Few /hpf (Few)
[2021-10-19 18:20] LABS: Albumin, Blood 3.5 g/dL (3.4-5.0); Albumin/Globulin Ratio 1.1 (0.8-1.8); Bilirubin, Total 0.5 mg/dL (0.1-1.0); Bun/Creatinine Ratio 20.7 (12.0-20.0); Calcium, Blood 9.2 mg/dL (8.5-10.1); Creatinine, Blood 0.92 mg/dL (0.40-1.00); Globulin, Blood 3.1 g/dL (2.2-4.0); Potassium, Blood 4.3 mmol/L (3.5-5.5); Total Protein, Blood 6.6 g/dL (6.4-8.2)
[2021-10-19 18:34] LABS: Influenza A, PCR NEGATIVE (NEGATIVE); Influenza B, PCR NEGATIVE (NEGATIVE); Resp Syncytial Virus, PCR NEGATIVE (NEGATIVE); SARS-Cov-2 (COVID-19) PCR, MMC NEGATIVE (NEGATIVE)
[2021-10-19] MEDS ORDERED: CEFD300 PO (18:38)
[2021-10-19] MEDS ORDERED: ONDA4ODT MM (18:38)
[2021-10-19] MEDS ORDERED: PHENA200 PO (18:47)
== END 2021-10-19 19:00 | disposition home or self-care (01) ==
LOC: ER 16:25
PROVIDERS: Student in an Organized Health Care Education/Training Program
DX: N39.0 Urinary tract infection, site not specified (principal); K30 Functional dyspepsia; J44.9 Chronic obstructive pulmonary disease, unspecified; I25.10 Atherosclerotic heart disease of native coronary artery without angina pectoris; I11.0 Hypertensive heart disease with heart failure; I50.30 Unspecified diastolic (congestive) heart failure; E11.9 Type 2 diabetes mellitus without complications; Z87.891 Personal history of nicotine dependence; Z79.82 Long term (current) use of aspirin; Z79.899 Other long term (current) drug therapy; Z88.5 Allergy status to narcotic agent; Z91.038 Other insect allergy status; Z95.5 Presence of coronary angioplasty implant and graft; Z20.822 Contact with and (suspected) exposure to COVID-19
CPT/HCPCS: 0241U; 80053; 81001; 85025; 96374; 99284-25; A9270; J0696

== ENCOUNTER 2021-10-23 16:33 | Inpatient (IN) | payer OTHER ==
[~2021-10-23] VITALS: Ht 170.2 cm; Wt 36.6 kg
[~2021-10-23 16:33] MED LIST changes: +CEFD300 PO; +ONDA4ODT MM; +PHENA200 PO
[2021-10-23 17:21] LABS: BASOPHILS ABSOLUTE AUTO 0.02 K/mm3 (0.00-0.23); BASOPHILS PERCENT AUTO 0 % (0-2); EOSINOPHILS ABSOLUTE AUTO 0.02 K/mm3 (0.00-0.68); EOSINOPHILS PERCENT AUTO 0 % (0-6); Hematocrit 39.3 % (33.0-51.0); Hemoglobin 12.6 g/dL (11.5-16.0); IMMATURE GRAN ABSOLUTE AUTO 0.05 K/mm3 (0.00-0.10); IMMATURE GRAN PERCENT AUTO 1 % (0-1); LYMPHOCYTES ABSOLUTE AUTO 0.87 K/mm3 (0.84-5.20); LYMPHOCYTES PERCENT AUTO 17 % (21-46); MONOCYTES ABSOLUTE AUTO 0.62 K/mm3 (0.16-1.47); MONOCYTES PERCENT AUTO 12 % (4-13); Mean Corpuscular HGB 32.1 pg (26.0-34.0); Mean Corpuscular HGB Conc 32.1 g/dL (31.5-36.5); Mean Corpuscular Volume 100 fL (80-100); Mean Platelet Volume 10.1 fL (9.1-12.4); NEUTROPHILS ABSOLUTE AUTO 3.45 K/mm3 (1.96-9.15); NEUTROPHILS PERCENT AUTO 69 % (41-73); Platelet Count 147 K/mm3 (150-400); RDW Coefficient Variation 13.1 % (11.7-14.2); RDW Standard Deviation 48.4 fL (35.1-46.3); Red Blood Cell Count 3.92 M/mm3 (3.80-5.20); White Blood Cell Count 5.03 K/mm3 (4.00-11.30)
[2021-10-23 17:35] LABS: Base Excess Venous 11.4 mmol/L; Bicarbonate Venous 32.3 mmol/L (24.0-30.0); PCO2 Venous 79.6 mmHg (38-42); PO2 Venous 131 mmHg (38-42); pH Blood Venous 7.29 (7.34-7.37)
[2021-10-23 17:36] LABS: Albumin, Blood 2.9 g/dL (3.4-5.0); Albumin/Globulin Ratio 0.9 (0.8-1.8); Bilirubin, Total 0.3 mg/dL (0.1-1.0); Bun/Creatinine Ratio 23.7 (12.0-20.0); Calcium, Blood 8.8 mg/dL (8.5-10.1); Creatinine, Blood 0.97 mg/dL (0.40-1.00); Globulin, Blood 3.2 g/dL (2.2-4.0); Potassium, Blood 4.6 mmol/L (3.5-5.5); Total Protein, Blood 6.1 g/dL (6.4-8.2)
[2021-10-23 17:58] LABS: Source, Urine Straight Cath
[2021-10-23 18:01] LABS: Appearance, Urine Clear (Clear); Bilirubin, Urine Neg (Neg); Blood, Urine Neg (Neg); Color, Urine Yellow (P-Yellow); Glucose Qualitative, Urine Neg (Neg); Ketones, Urine 1+ (Neg); Leukocyte Esterase, Urine Neg (Neg); Nitrite, Urine Neg (Neg); Protein, Urine 1+ (Neg); Urobilinogen, Urine NORM (Normal)
[2021-10-23 18:09] LABS: Influenza A, PCR NEGATIVE (NEGATIVE); Influenza B, PCR NEGATIVE (NEGATIVE); Resp Syncytial Virus, PCR NEGATIVE (NEGATIVE)
[2021-10-23 18:33] LABS: International Normalized Ratio 0.96; Prothrombin Time Results 10.1 Sec (9.7-11.5)
[2021-10-23 18:45] LABS: SARS-Cov-2 (COVID-19) PCR, MMC POSITIVE (NEGATIVE)
[2021-10-23 19:19] LABS: C DIFFICILE DNA POSITIVE (Negative)
[2021-10-23 22:42] LABS: U Amphetamine Screen Not Detected; U Barbituate Screen Not Detected; U Benzodiazapine Screen Not Detected; U Buprenorphine Screen Not Detected; U Cannabinoids Screen Not Detected; U Cocaine Screen Not Detected; U Methadone Screen Not Detected; U Methamphetamine Screen Not Detected; U Opiates Screen Not Detected; U Oxycodone Screen Not Detected; U Phencyclidine Screen Not Detected; U Propoxyphene Screen Not Detected
[2021-10-24 00:56] LABS: Source, Urine Foley catheter
[2021-10-24 00:58] LABS: Bilirubin, Urine Neg (Neg); Blood, Urine Neg (Neg); Glucose Qualitative, Urine Neg (Neg); Ketones, Urine Neg (Neg); Leukocyte Esterase, Urine Neg (Neg); Nitrite, Urine Neg (Neg); Protein, Urine 2+ (Neg); Urobilinogen, Urine NORM (Normal)
--- NOTE | 2021-10-24 01:00 | NUR ---
Assumed care of pt at 2315 as an ER admit. Upon entering room, patient is difficult to arouse, often only moans and withdrawing from pain. Patient appeared dusky, oxygen found to be in the 60's on 2L NC, RT contacted and patient placed on bipap 18/8 80% and now satting 100%. Patients' stool is a small/med amount of liquid brown/red. No urine in briefs, urinary catheter placed and 700ml out immediately that was orange/clear in appearance. Patient's arms and legs contracted in flexed position. Patient in need of NG tube per order for oral vanco, hospitalist contacted over concern of vomiting with patients mentation and need for bipap. Per hospitalist, wait on the oral vanco and NG until patients CO2 comes down and mentation better.
[2021-10-24 01:06] LABS: Appearance, Urine Clear (Clear); Color, Urine Yellow (P-Yellow)
[2021-10-24 01:07] LABS: Granular Casts 0-2 /lpf (0); Hyaline Casts 0-2 /lpf (0-2)
[2021-10-24 01:08] LABS: Amorphous Light (0-Heavy); Bacteria Mod /hpf; Red Blood Cells, Urine 0-2 /hpf (0-2); Squamous Epithelial Cells Rare /hpf (Few); White Blood Cells, Urine 0-2 /hpf (0-5)
[2021-10-24 02:01] LABS: Hematocrit 42.2 % (33.0-51.0); Hemoglobin 13.1 g/dL (11.5-16.0); Mean Corpuscular HGB 31.6 pg (26.0-34.0); Mean Corpuscular Volume 102 fL (80-100); Mean Platelet Volume 9.9 fL (9.1-12.4); Platelet Count 116 K/mm3 (150-400); RDW Coefficient Variation 12.9 % (11.7-14.2); RDW Standard Deviation 48.4 fL (35.1-46.3); Red Blood Cell Count 4.14 M/mm3 (3.80-5.20); White Blood Cell Count 5.83 K/mm3 (4.00-11.30)
[2021-10-24 02:16] LABS: Albumin, Blood 3.1 g/dL (3.4-5.0); Bilirubin, Total 0.3 mg/dL (0.1-1.0); Bun/Creatinine Ratio 22.5 (12.0-20.0); Creatinine, Blood 1.02 mg/dL (0.40-1.00); Globulin, Blood 3.2 g/dL (2.2-4.0); Total Protein, Blood 6.3 g/dL (6.4-8.2)
[2021-10-24 02:20] LABS: BAND PERCENT MAN 6 % (0-8); BASOPHILS PERCENT MAN 0 % (0-2); EOSINOPHILS PERCENT MAN 0 % (0-6); LYMPHOCYTES % ATYPICAL MANUAL 2 % (0-0); LYMPHOCYTES ABSOLUTE MAN 1.63 K/mm3 (0.84-5.20); LYMPHOCYTES PERCENT MAN 26 % (21-46); MONOCYTES ABSOLUTE MAN 0.29 K/mm3 (0.16-1.47); MONOCYTES PERCENT MAN 5 % (4-13); MYELOCYTE ABSOLUTE MAN 0.05 K/mm3 (0.00-0.00); MYELOCYTE PERCENT MAN 1 % (0-0); NEUTROPHILS ABSOLUTE MAN 3.84 K/mm3 (1.96-9.15); SEG NEUTROPHILS PERCENT MAN 60 % (41-73); TOTAL CELLS COUNTED 100
[2021-10-24 10:05] LABS: PCO2 Venous 69.8 mmHg (38-42); PO2 Venous 68.7 mmHg (38-42); pH Blood Venous 7.29 (7.34-7.37)
--- NOTE | 2021-10-24 17:07 | NUR ---
Shift Summary Assumed care of patient at approx 0700. Pt resting in bed, responding with painful stimuli with moaning and pulling away from stimuli. q2 turn. Pt has rectal tube in place, draining brown/red liquid. Miller in place, patent and draining. Pt tele sinus 80's, bp stable. Spo2 >90% on bipap 18/8 bur 18, fio2 from 60% down to 45%, ls dim t/o. Abd tender, hyperactive bt t/o. Pt is not awake enough to swallow pills, plans to place dobhoff for medication administration. Vss. No other acute changes noted. Will continue to monitor unitl report given to oncoming rn.
--- NOTE | 2021-10-24 19:00 | NUR ---
Attempted dobhoff, unable to advance past 10cm, left nare started to bleed. Notified Dr Angel, new orders to hold ng/dobhoff at this times. Updated daughter Lily.
[2021-10-25 05:53] LABS: Hematocrit 32.3 % (33.0-51.0); Hemoglobin 10.3 g/dL (11.5-16.0); Mean Corpuscular HGB 32.2 pg (26.0-34.0); Mean Corpuscular HGB Conc 31.9 g/dL (31.5-36.5); Mean Corpuscular Volume 101 fL (80-100); Mean Platelet Volume 10.3 fL (9.1-12.4); Platelet Count 90 K/mm3 (150-400); RDW Coefficient Variation 12.9 % (11.7-14.2); White Blood Cell Count 6.68 K/mm3 (4.00-11.30)
[2021-10-25 06:17] LABS: BAND PERCENT MAN 47 % (0-8); BASOPHILS PERCENT MAN 0 % (0-2); EOSINOPHILS PERCENT MAN 0 % (0-6); LYMPHOCYTES PERCENT MAN 3 % (21-46); MONOCYTES ABSOLUTE MAN 0.13 K/mm3 (0.16-1.47); MONOCYTES PERCENT MAN 2 % (4-13); MYELOCYTE ABSOLUTE MAN 0.06 K/mm3 (0.00-0.00); MYELOCYTE PERCENT MAN 1 % (0-0); NEUTROPHILS ABSOLUTE MAN 6.27 K/mm3 (1.96-9.15); SEG NEUTROPHILS PERCENT MAN 47 % (41-73); TOTAL CELLS COUNTED 100
[2021-10-25 07:46] LABS: Albumin, Blood 2.1 g/dL (3.4-5.0); Albumin/Globulin Ratio 0.8 (0.8-1.8); Bilirubin, Total 0.2 mg/dL (0.1-1.0); Bun/Creatinine Ratio 24.2 (12.0-20.0); Calcium, Blood 7.3 mg/dL (8.5-10.1); Creatinine, Blood 0.83 mg/dL (0.40-1.00); Globulin, Blood 2.6 g/dL (2.2-4.0); Potassium, Blood 4.1 mmol/L (3.5-5.5); Total Protein, Blood 4.7 g/dL (6.4-8.2)
--- NOTE | 2021-10-25 07:52 | NUR ---
SHIFT SUMMARY PT WAS AROUSABLE TO PAINFUL STIMULI T/O THE NIGHT. SHE WOULD GET VERY RESTLESS AND WITH ANY TOUCH AND WOULD ATTEMPT TO RESIST CARE. VITALS WERE STABLE. CULLEN CATH IN PLACE IS DRAINING TO GRAVITY. RECTAL TUBE IN PLACE WITH LIQUID RUST COLOR STOOL OUTPUT WITH APPOX 150 COLLECTED. SHE HAS RESISTED THE BIPAP MASK AND HAS BEEN MEDICATED PER ORDER WHEN NEEDED. BED ALARM ACTIVE. CALL LIGHT IN REACH.
--- NOTE | 2021-10-25 11:19 | NUR ---
CARE ASSUMPTION PT DOES NOT WAKE TO VERBAL STIMULI. PT RESPONDS TO TOUCH BY BECOMING AGITATED, PULLING AWAY &/OR SWINGING ARMS. PT GROANS/YELLS SOUNDS LOUDLY & DOES NOT OPEN EYES. PT THEN BECOMES QUIET AND RESTFUL WHEN VS/ASSESSMENT/REPOSITIONING/CARE COMPLETE. PT VSS. SPO2 > 92% ON BIPAP: 18/8, FIO2 30%. MONITOR SHOWING SR-ST, HR 90s-110s. CULLEN CATH PATENT & DRAINING CLEAR YELLOW URINE. RECTAL TUBE IN PLACE DRAINING LIQUID BROWN STOOL. NS GTT INFUSING PER ORDERS. BED ALARM ON.
[2021-10-25 18:11] LABS: Base Excess Venous 2.7 mmol/L; Bicarbonate Venous 25.8 mmol/L (24.0-30.0); PCO2 Venous 52.9 mmHg (38-42); pH Blood Venous 7.34 (7.34-7.37)
--- NOTE | 2021-10-25 18:34 | NUR ---
SHIFT SUMMARY PT NOT WAKING TO VERBAL STIMULI PREVIOUSLY IN SHIFT. PT NOW AWAKE, OPENED EYES BRIEFLY. PT GROANING LOUDLY IN RM. DOES NOT ANSWER Q's OR RESPOND APPROPRIATELY. PT WEARING BIPAP: 18/, FIO2 30% MAJORITY OF SHIFT, TAKEN OFF FOR TRIAL RUN TO [employer] NC BY RT THIS AM, W/ REAPPLICATION OF BIPAP D/T SPO2 DESAT, SEE RT ASSESSMENT. PT THEN PLACE ON NRB FOR GOING TO IMAGING THIS EVENING. PT SPO2 > 92% BUT RR 30's & HR INCREASE TO 173. BIPAP REPLACED WHEN PT BACK IN RM W/ RR RETURN TO 20's & HR NOW 120s-130s. MONITOR PREVIOUSLY SHOWING SR-ST, HR 90s-110s. CULLEN CATH PATENT & DRAINING CLEAR YELLOW URINE. RECTAL TUBE IN PLACE DRAINING LIQUID BROWN STOOL. NS GTT INFUSING PER ORDERS. CALL TO MD PARADA TO REPORT CT IMAGING RESULTS BACK. TO REVIEW & PLACE NEW ORDERS. MD AWARE NGT NOT PLACED TODAY D/T PT NOT TOLERATING BEING OFF BIPAP PREVIOUSLY IN SHIFT & PT RESTLESS W/ BIPAP MASK FREQUENTLY NEEDING TO BE READJUSTED BY STAFF. STAFF CONCERN OF PT TOLERANCE OF NGT PLACEMENT. BED ALARM ON.
[2021-10-26 05:37] LABS: Hematocrit 38.6 % (33.0-51.0); Hemoglobin 12.3 g/dL (11.5-16.0); Mean Corpuscular HGB 31.5 pg (26.0-34.0); Mean Corpuscular HGB Conc 31.9 g/dL (31.5-36.5); Mean Corpuscular Volume 99 fL (80-100); Mean Platelet Volume 10.3 fL (9.1-12.4); Platelet Count 145 K/mm3 (150-400); RDW Coefficient Variation 13.2 % (11.7-14.2); White Blood Cell Count 9.92 K/mm3 (4.00-11.30)
--- NOTE | 2021-10-26 05:47 | NUR ---
SHIFT SUMMARY PT MORE ALERT THIS SHIFT, SAYING PHRASES LIKE, "I HAVE TO PEE". PT INFORMED OF CULLEN DRAINING. PT STATES, "THIS TASTES DISGUSTING" DURING ORAL CARE AND FIGHTS ORAL CARE. AT BEGINNING OF SHIFT PT REMOVED BIPAP MASK MULTIPLE TIMES. RT IN ROOM, SWITCHED PT TO AIRVO, PT TOLERATING SP02 MARTINEZ. PT OCCASIONALLY REMOVED AIRVO CANNULA DURING SHIFT, WOULD DESAT TO LOW 70'S. THIS AM PT PLACED IN RESTRAINTS FOR PT SAFETY DUE TO CONTINUOUSLY REMOVING CANNULA AND DESATTING. TELEMETRY SHOWS NSR/SINUS TACH, HR 100'S TO 170'S WHEN AGITATED/DESATTING. CULLEN CATHETER DRAINING YELLOW URINE TO GRAVITY. RECTAL TUBE DRAINING BROWN LIQUID STOOL TO GRAVITY. AT START OF SHIFT, MD ASTORGA CALLED TO ENSURE FLUIDS WERE OFF AND ORDERED 40MG IV LASIX. LASIX GIVEN W/ SUCCESSFUL INCREASED OUTPUT. PT TURNED Q2H. ORAL DONE. CALL LIGHT IN REACH.
[2021-10-26 05:55] LABS: Albumin, Blood 2.8 g/dL (3.4-5.0); Albumin/Globulin Ratio 0.8 (0.8-1.8); Bilirubin, Total 0.7 mg/dL (0.1-1.0); Bun/Creatinine Ratio 17.3 (12.0-20.0); Creatinine, Blood 0.92 mg/dL (0.40-1.00); Globulin, Blood 3.3 g/dL (2.2-4.0); Potassium, Blood 3.4 mmol/L (3.5-5.5); Total Protein, Blood 6.1 g/dL (6.4-8.2)
[2021-10-26 06:17] LABS: BAND PERCENT MAN 11 % (0-8); BASOPHILS PERCENT MAN 0 % (0-2); EOSINOPHILS PERCENT MAN 0 % (0-6); LYMPHOCYTES ABSOLUTE MAN 1.09 K/mm3 (0.84-5.20); LYMPHOCYTES PERCENT MAN 11 % (21-46); MONOCYTES ABSOLUTE MAN 0.49 K/mm3 (0.16-1.47); MONOCYTES PERCENT MAN 5 % (4-13); NEUTROPHILS ABSOLUTE MAN 8.33 K/mm3 (1.96-9.15); SEG NEUTROPHILS PERCENT MAN 73 % (41-73); TOTAL CELLS COUNTED 100
--- NOTE | 2021-10-26 11:10 | NUR ---
ANXIETY CALL TO MD SLAUGHTER TO REPORT PT HR TOUCHING UP TO 202 & PT VERY AGITATED & ANXIOUS YELLING OUT. STATES WILL DISCUSS PT WITH TEAM. NO ORDERS AT THIS TIME. PT FAMILY TO RM, HOLDING PT HANDS. BILAT SWR REMOVED & BIPAP ATTEMPTED TO ASSIST PT BREATHING. BIPAP IN PLACE FOR ONLY 3 MIN BEFORE REMOVED D/T PT STATING "I'M GOING TO THROW UP!" HI-MARIMAR NC REAPPLIED. PT CALMING, BUT STILL ANXIOUS. FAMILY REMAINS AT BEDSIDE ATTEMPTING TO COMFORT & CALM PT. MONITOR SHOWING ST, HR 170s-180s.
--- NOTE | 2021-10-26 18:49 | NUR ---
SHIFT SUMMARY PT MORE ALERT TODAY. GROANING LOUDLY MAJORITY OF SHIFT. PT SAYING SOME WORDS & SOME SHORT SENTENCES. PT [place], MAKING COMMUNICATION DIFFICULT IN ADDITION TO CONFUSION. PT ANXIOUS, SEE PREVIOUS NOTES. MONITOR SHOWING ST, HR 100-200 TODAY. HR NOW 100-120. SPO2 > 88% NOW ON 2L NC W/ PT TOLERATING WELL. NGT PLACED PER MD ORDER. CXR POST INSERTION COMPLETED W/ MD SLAUGHTER REVIEW & OKAY TO USE NGT FOR MEDICATION ADMINISTRATION. NGT CLAMPED. BILAT SWR IN PLACE PER ORDER. CULLEN CATH PATENT & DRAINING CLEAR YELLOW URINE. RECTAL TUBE DRAINING LIQUID BROWN STOOL. PT RESISTANT OF ORAL CARE W/ EACH ATTEMPT TODAY, DONE TO BEST OF NURSE ABILITY.
[2021-10-27 04:08] LABS: Hematocrit 38.6 % (33.0-51.0); Hemoglobin 12.7 g/dL (11.5-16.0); Mean Corpuscular HGB 31.4 pg (26.0-34.0); Mean Corpuscular HGB Conc 32.9 g/dL (31.5-36.5); Mean Corpuscular Volume 95 fL (80-100); Platelet Count 173 K/mm3 (150-400); RDW Standard Deviation 45.2 fL (35.1-46.3); Red Blood Cell Count 4.05 M/mm3 (3.80-5.20); White Blood Cell Count 10.94 K/mm3 (4.00-11.30)
[2021-10-27 04:25] LABS: Albumin, Blood 3.1 g/dL (3.4-5.0); Albumin/Globulin Ratio 0.9 (0.8-1.8); Bilirubin, Total 0.7 mg/dL (0.1-1.0); Bun/Creatinine Ratio 16.2 (12.0-20.0); Calcium, Blood 7.9 mg/dL (8.5-10.1); Creatinine, Blood 1.05 mg/dL (0.40-1.00); Globulin, Blood 3.6 g/dL (2.2-4.0); Potassium, Blood 3.3 mmol/L (3.5-5.5); Total Protein, Blood 6.7 g/dL (6.4-8.2)
[2021-10-27 04:48] LABS: BAND PERCENT MAN 13 % (0-8); BASOPHILS PERCENT MAN 0 % (0-2); EOSINOPHILS PERCENT MAN 0 % (0-6); LYMPHOCYTES PERCENT MAN 11 % (21-46); MONOCYTES ABSOLUTE MAN 0.54 K/mm3 (0.16-1.47); MONOCYTES PERCENT MAN 5 % (4-13); NEUTROPHILS ABSOLUTE MAN 9.18 K/mm3 (1.96-9.15); SEG NEUTROPHILS PERCENT MAN 71 % (41-73); TOTAL CELLS COUNTED 100
--- NOTE | 2021-10-27 05:01 | NUR ---
SHIFT SUMMARY NO ACUTE CHANGES THIS SHIFT. PT ALERT, CONFUSED, IONE. CALLS OUT, MOANS. SP02 MOSTLY >90% ON 2L NC. VSS, SEE MAR. CULLEN CATHETER DRAINED CLEAR YELLOW URINE TO GRAVITY. RECTAL TUBE DRAINING LIQUID BROWN STOOL TO GRAVITY. NG TUBE USED TO DELIVER ANTIBIOTICS, CURRENTLY CLAMPED. Q2H REPOSITION. DID NOT SLEEP MOST OF NIGHT. CALL LIGHT IN REACH.
--- NOTE | 2021-10-27 12:06 | NUR ---
UPDATE PT A&O TO SELF & FAMILY. WHEN ASKING PT WHERE SHE IS, PT STATES "OH SHIT" & IS UNABLE TO STATE LOCATION. PT ABLE TO FOLLOW SIMPLE COMMANDS. ST TO BEDSIDE FOR SWALLOW EVAL. ST W/ ORDER FOR PUREE DIET. PT W/ ONE BITE OF LUNCH TODAY, THEN REQUESTING NO MORE, STATING STOMACH UPSET. MD SLAUGHTER STATING NGT POSITION OKAY FOR MEDICATION ADMINISTRATION BUT GIVING INSTRUCTION TO ADVANCE NGT 10 CM PRIOR TO TUBE FEEDING ADMINISTRATION. NGT ADVANCED PER MD INSTRUCTION. MESSAGE CLERK CONSULTING W/ PLAN FOR LOW RATE TF UNTIL PT ABLE TO TOLERATE FURTHER PO INTAKE.
--- NOTE | 2021-10-27 17:44 | NUR ---
SHIFT SUMMARY PT A&O TO SELF, PLACE & FAMILY, FOLLOWING SIMPLE INSTRUCTIONS. PT VSS. SPO2 > 92% ON 2L NC. MONITOR SHOWING SR-ST, HR 70s-130's. PT EVALUATED BY ST, PLACED ON A PUREE DIET W/ PT ONLY TAKING A FEW BITES DURING MEAL TIME. DAIRY EQUIPMENT INSTALLER W/ ORDER FOR TF VIA NGT UNTIL PT W/ MORE REGULAR INTAKE. TF INFUSING @ GOAL RATE OF 25 MLS/HR. RECTAL TUBE DRAINING LIQUID BROWN STOOL. CULLEN CATH DRAINING SHIRA URINE. NS GTT INFUSING PER ORDERS. BILAT SWR IN PLACE PER ORDER. FAMILY AT BEDSIDE.
[2021-10-28 04:15] LABS: BASOPHILS ABSOLUTE AUTO 0.06 K/mm3 (0.00-0.23); BASOPHILS PERCENT AUTO 1 % (0-2); EOSINOPHILS ABSOLUTE AUTO 0.03 K/mm3 (0.00-0.68); EOSINOPHILS PERCENT AUTO 0 % (0-6); Hematocrit 39.6 % (33.0-51.0); Hemoglobin 13.2 g/dL (11.5-16.0); IMMATURE GRAN ABSOLUTE AUTO 0.33 K/mm3 (0.00-0.10); IMMATURE GRAN PERCENT AUTO 3 % (0-1); LYMPHOCYTES PERCENT AUTO 12 % (21-46); MONOCYTES ABSOLUTE AUTO 0.79 K/mm3 (0.16-1.47); MONOCYTES PERCENT AUTO 6 % (4-13); Mean Corpuscular HGB 31.1 pg (26.0-34.0); Mean Corpuscular HGB Conc 33.3 g/dL (31.5-36.5); Mean Corpuscular Volume 93 fL (80-100); Mean Platelet Volume 10.9 fL (9.1-12.4); NEUTROPHILS ABSOLUTE AUTO 9.67 K/mm3 (1.96-9.15); NEUTROPHILS PERCENT AUTO 78 % (41-73); Platelet Count 213 K/mm3 (150-400); RDW Coefficient Variation 13.2 % (11.7-14.2); Red Blood Cell Count 4.24 M/mm3 (3.80-5.20); White Blood Cell Count 12.38 K/mm3 (4.00-11.30)
[2021-10-28 04:48] LABS: Magnesium, Blood 1.3 mg/dL (1.6-2.4)
[2021-10-28 05:25] LABS: Albumin, Blood 2.9 g/dL (3.4-5.0); Albumin/Globulin Ratio 0.8 (0.8-1.8); Bilirubin, Total 0.7 mg/dL (0.1-1.0); Bun/Creatinine Ratio 23.9 (12.0-20.0); Calcium, Blood 7.9 mg/dL (8.5-10.1); Creatinine, Blood 0.8 mg/dL (0.40-1.00); Globulin, Blood 3.6 g/dL (2.2-4.0); Total Protein, Blood 6.5 g/dL (6.4-8.2)
[2021-10-28 05:27] LABS: Phosphorus, Blood 0.3 mg/dL (2.5-4.9)
--- NOTE | 2021-10-28 05:41 | NUR ---
pt update lab vocera'd to notify of critical lab- phosphorus 0.3. Call placed to MD Tapia. MD Davies to put in orders.
--- NOTE | 2021-10-28 05:45 | NUR ---
SHIFT SUMMARY PT ALERT, MENTATION IMPROVING FROM PREVIOUS SHIFTS. STATES SHE WANTS TO GO HOME. SP02>90% ON 2-5L HUMIDIFIED NC. VSS. PT C/O OF ABD PAIN, YELLS OUT IN PAIN, STATES IT COMES AND GOES. HEATING PAD APPLIED WITH SOME RELIEF. CULLEN CATHETER DRAINING DARK URINE TO GRAVITY. RECTAL TUBE DRAINING BROWN LIQUID STOOL TO GRAVITY. FLUIDS INFUSED PER EMAR. TUBE FEEDING INFUSING VIA NG TUBE PER EMAR. MINIMAL RESIDUALS. PT ABLE TO TAKE MEDS W/ APPLESAUCE. CALL LIGHT IN REACH.
[2021-10-28 11:35] LABS: Magnesium, Blood 2.8 mg/dL (1.6-2.4); Phosphorus, Blood 1.6 mg/dL (2.5-4.9)
--- NOTE | 2021-10-28 17:53 | NUR ---
SHIFT SUMMARY PT A&O TO SELF & FAMILY. PT VSS. SPO2 > 92% ON 2L NC. MONITOR SHOWING SR, HR 60s-90s AT REST. HR INCREASE TO 150's W/ ACTIVITY/DISCOMFORT. PT C/O CRAMPING ABD PAIN WHEN HAVING BM's. RECTAL TUBE CONTINUES TO DRAIN LIQUID BROWN STOOL. PT STATING "OOOH! OOOH! I'M GOING AGAIN!" PT GRIMACING & GROANING EACH TIME SHE STATES "SHE'S GOING" & MORE STOOL NOTED TO PASS THROUGH RECTAL TUBE. HEATING PAD IN PLACE TO ABD. PRN PO TYLENOL GIVEN PER EMAR W/ LITTLE IMPROVEMENT IF ANY. RECTAL TUBE OUTPUT SIGNIFICANTLY LESS THIS SHIFT THAN YESTERDAY W/ < 100 MLS OBSERVED IN BAG. CULLEN CATH PATENT & DRAINING DARK TEA COLORED URINE. NGT INFUSING TF @ ORDERED GOAL RATE. PT TOLERATING SWALLOWING APPLESAUCE, PUDDING, OR YOGURT W/ MEDS, BUT STATES "OH YUCK" W/ EACH ATTEMPT. PT COMPLIANT W/ TAKING PILLS THOUGH. ATTEMPTS MADE FOR PT TO TRY TO TAKE PLAIN BITES OF FOOD BUT PT REFUSING FURTHER BITES. DRINKING WATER W/ STRAW OKAY. BILAT SWR DC'd THIS AM, PT TOLERATING WELL, NOT GRABBING/PULLING AT LINES.
[2021-10-29 04:03] LABS: BASOPHILS ABSOLUTE AUTO 0.03 K/mm3 (0.00-0.23); BASOPHILS PERCENT AUTO 0 % (0-2); EOSINOPHILS ABSOLUTE AUTO 0.13 K/mm3 (0.00-0.68); EOSINOPHILS PERCENT AUTO 1 % (0-6); Hematocrit 36.6 % (33.0-51.0); Hemoglobin 12.4 g/dL (11.5-16.0); IMMATURE GRAN ABSOLUTE AUTO 0.41 K/mm3 (0.00-0.10); IMMATURE GRAN PERCENT AUTO 4 % (0-1); LYMPHOCYTES ABSOLUTE AUTO 1.02 K/mm3 (0.84-5.20); LYMPHOCYTES PERCENT AUTO 11 % (21-46); MONOCYTES ABSOLUTE AUTO 0.63 K/mm3 (0.16-1.47); MONOCYTES PERCENT AUTO 7 % (4-13); Mean Corpuscular HGB 31.4 pg (26.0-34.0); Mean Corpuscular HGB Conc 33.9 g/dL (31.5-36.5); Mean Corpuscular Volume 93 fL (80-100); Mean Platelet Volume 10.1 fL (9.1-12.4); NEUTROPHILS ABSOLUTE AUTO 7.03 K/mm3 (1.96-9.15); NEUTROPHILS PERCENT AUTO 76 % (41-73); Platelet Count 198 K/mm3 (150-400); RDW Coefficient Variation 13.1 % (11.7-14.2); RDW Standard Deviation 44.8 fL (35.1-46.3); Red Blood Cell Count 3.95 M/mm3 (3.80-5.20); White Blood Cell Count 9.25 K/mm3 (4.00-11.30)
[2021-10-29 04:32] LABS: Magnesium, Blood 2.1 mg/dL (1.6-2.4)
[2021-10-29 04:37] LABS: Albumin, Blood 2.6 g/dL (3.4-5.0); Albumin/Globulin Ratio 0.9 (0.8-1.8); Bilirubin, Total 0.5 mg/dL (0.1-1.0); Bun/Creatinine Ratio 18.8 (12.0-20.0); Calcium, Blood 7.5 mg/dL (8.5-10.1); Creatinine, Blood 0.74 mg/dL (0.40-1.00); Phosphorus, Blood 0.8 mg/dL (2.5-4.9); Potassium, Blood 2.7 mmol/L (3.5-5.5); Total Protein, Blood 5.6 g/dL (6.4-8.2)
--- NOTE | 2021-10-29 07:35 | NUR ---
SHIFT SUMMARY PT CONTINUES TO HAVE SOME CONFUSION. WAS UNAWARE IT WAS NIGHT AT 2AM. STATES SHE IS FEELING WELL ENOUGH TO GO HOME. AFEBRILE. PULSE SR 60-80'S. BP STABLE. ON 2L SATS OVER 93%. RECTAL TUBE IN PLACE DRAINING TO GRAVITY. CULLEN IN PLACE DRAINING DARK COLORED URINE TO GRAVITY. HARD OF HEARING. BG TUBE RUNNING 25ML/HR. PT REPORTS PAIN, ONLY BEFORE PASSING STOOL. OTHERWISE SAYS COMFORTABLE. MEDICATED PER EMAR. Q2 TURNS. MINIMAL LEAKAGE FROM RECTAL TUBE. REPORT GIVEN TO DAYSHIFT RN
--- NOTE | 2021-10-29 10:26 | NUR ---
PT ALERT AND ORIENTED TO SELF. PT ENDORSES VISUAL HALLUCINATION OF BUTTONS AND LIGHTS ON THE WALL IN AN AREA THAT IS BLANK. TUBE FEED REPLACED WITH NEW FEED AND TUBING. PT HAD EPISODE OF SEVERE NAUSEA, ZOFRAN GIVEN PER EMAR. RECTAL TUBE AND CULLEN IN PLACE. PT IS CALLING OUT IN PAIN, CALLING "HELP ME", WAVING ARMS AROUND, ATTEMPTING TO GET OUT OF BED, STATING THE PAIN IS ABDOMINAL. PT REPSITIONED, PROVIDED VERBAL REASSURANCE, DISTRACTION WITH TV ALSO PROVIDED. PAIN MEDICATION ORDERS PENDING. WCTM.
--- NOTE | 2021-10-29 13:50 | NUR ---
PT HAD AN EPISODE OF EMESIS AND DRY HEAVING AFTER MEDICATION ADMINISTRATION AND A FEW SIPS OF LUNCH, ZOFRAN GIVEN PER EMAR. PT ENDORSED ABDOMINAL PAIN.
--- NOTE | 2021-10-29 17:30 | NUR ---
CALL TO DR. SLAUGHTER: DISCUSSED PT'S POSITIVE FLUID BALANCE, INCREASED COARSENESS IN LUNG SOUNDS, INCREASED O2 NEEDS FROM 1L VIA NASAL CANNULA TO 3 L VIA NASAL CANNULA TO MAINTAIN O2 >90%, BRADYCARDIA OF 40s-50s DURING SLEEP, LOW BP, AND CONTINUED ABDOMINAL PAIN WITH N/V AFTER MEDS/FLUSHES. WCTM.
--- NOTE | 2021-10-29 17:56 | NUR ---
SHVFT SUMMARY PT ALERT AND ORIENTED TO SELF AND SURROUNDINGS THIS MORNING, DID ENDORSE VISUAL HALLUCINATIONS THIS MORNING. TUBE FEED RUNNING PER ORDERS. SPEECH CHANGED MEDICATION ADMINISTRATION PRECAUTIONS TO NON-ORAL THIS SHIFT AND DOWNGRADED PATIENT'S DIET TO FULL LIQUID. AT LUNCH PT HAD COUGHING FIT WITH A FEW SIPS OF LUNCH. PT UNABLE TO TAKE PO INTAKE THIS SHIFT OTHER THAN THOSE FEW SIPS. AFTER MEDICATION ADMINISTRATION AND NG FLUSHES THIS MORNING AND AFTERNOON PT HAD EPSIDOES OF N/V AND INCREASED ABDOMINAL PAIN. PT REMAINS CONFUSED BUT IS EASILY REDIRECTABLE. PT REPOSITIONED T/O SHIFT BY STAFF, ORAL CARE/SUCTIONING PERFORMED T/O SHIFT. PT'S O2 NEEDS INCREASED FROM 1L VIA NASAL CANNULA TO 3L TO MAINTAIN O2 SATURATION >90%. BED ALARM IN PLACE.
--- NOTE | 2021-10-29 22:54 | NUR ---
CARE ASSUMPTION: PATIENT ASLEEP AT BEGINNING OF SHIFT. IS A&O X2 AND ABLE TO USE CALL LIGHT. FREQUENTLY CALLS OUT "I'M REALLY SICK AND NEED HELP" AND "I'VE BEEN HERE FOR DAYS AND NO ONE HELPS ME." PATIENT [place] AND CONFUSED, IS NOT READILY REDIRECTABLE, AND EMOTIONAL. PATIENT IS AFRAID OF THE DARK AND KEEPS SAYING NO ONE CARES ABOUT HER AND SHE'S ALL ALONE IN THE WORLD. BED LOW WITH CALL LIGHT IN REACH. TUBE FEED RUNNING AT 10 MLS/MIN AND FLUIDS RUNNING PER EMAR.
--- NOTE | 2021-10-30 03:54 | NUR ---
SHIFT SUMMARY: PATIENT AFEBRILE, VSS ON 3L NC. PATIENT A&O TO SELF AND PLACE. PATIENT RECTAL TUBE REPLACED THIS SHIFT AND DRAINING TO GRAVITY. CULLEN DRAINING TO GRAVITY. ORAL CARE PERFORMED PATIENT ALLOWS. FULL BED CHANGE AFTER NEW RECTAL TUBE PLACED. PATIENT HAS FOUGHT CARE, BUT WAS REDIRECTABLE. MEDICATED PER EMAR. PATIENT HAD A BOUT OF DRY HEAVING BUT NO EMESIS. TF RUNNING AT GOAL OF 10 MLS. NO ADVERSE EVENTS THIS SHIFT. BED LOW, BED ALARM SET, CALL LIGHT IN REACH. WILL CONTINUE TO MONITOR AND REPORT TO ONCOMING RN.
[2021-10-30 04:30] LABS: Bun/Creatinine Ratio 16.6 (12.0-20.0); Calcium, Blood 6.9 mg/dL (8.5-10.1); Creatinine, Blood 0.9 mg/dL (0.40-1.00); Magnesium, Blood 1.7 mg/dL (1.6-2.4); Phosphorus, Blood 2.6 mg/dL (2.5-4.9); Potassium, Blood 2.9 mmol/L (3.5-5.5)
--- NOTE | 2021-10-30 04:51 | NUR ---
CRITICAL VALUE: POTASSIUM 2.9 AND [address]. [address]ED [address] Tapia AND RECEIVED NEW ORDERS.
--- NOTE | 2021-10-30 09:31 | NUR ---
Am note Assumed care of patient at approx 0700. Pt alert, oriented to person and date, pt unsure of place/surrounding or event. Pt denies pain, chest pain/pressure, sob, and dizziness. Pt reports sob but states she feels more congested, ls dim t/o, spo2 99% on 3l o2 via nc, titrated to 2l o2 via nc. Tele junctional bigeminey/sinus 50-80's, bp stable. Pt abd soft, tender on palpation, pt has rectal tube in place draining green liquid. NG tube in place, secured with tape/ng securment tape, tube feeding going at 10ml/hr. Reddness to coccyx, mepilex placed. Pt appears anxious and fearful, asking repeatedly when I will be back to see her. Vss. No other acute changes noted. Will continue to monitor
--- NOTE | 2021-10-30 17:05 | NUR ---
Shift Summary Pt rectal tube out while working with physical therapy. Notified md, ok to leave out, plans to give one time of immodium. No other acute changes during shift. Hr 50-80's, bp stable. Other vss. No s/sx of distress noted. Will cotinue to monitor unitl report given to oncoming rn
--- NOTE | 2021-10-31 06:19 | NUR ---
SHIFT SUMMARY NO ACUTE CHANGES DURING SHIFT. PT ALERT, ANSWERS QUESTIONS, FOLLOWS COMMANDS. SP02>90% MOSTLY ON 2L NC. ONE EPISODE OF DESAT TO MID 80'S DURING ANXIETY EPISODE. VSS. CULLEN CATHETER DRAINING TO GRAVITY. MULTIPLE INCONTINENT BMS THIS SHIFT, FULL BED CHANGE. C/D ATTENDS IN PLACE. NG TUBE INFUSING PER EMAR. ABX GIVEN THROUGH NG TUBE. ORAL CARE DONE. Q2 TURNS. CALL LIGHT IN REACH.
[2021-10-31 08:14] LABS: BASOPHILS ABSOLUTE AUTO 0.03 K/mm3 (0.00-0.23); BASOPHILS PERCENT AUTO 0 % (0-2); EOSINOPHILS ABSOLUTE AUTO 0.12 K/mm3 (0.00-0.68); EOSINOPHILS PERCENT AUTO 1 % (0-6); Hematocrit 38.4 % (33.0-51.0); Hemoglobin 12.5 g/dL (11.5-16.0); IMMATURE GRAN ABSOLUTE AUTO 0.19 K/mm3 (0.00-0.10); IMMATURE GRAN PERCENT AUTO 2 % (0-1); LYMPHOCYTES ABSOLUTE AUTO 1.18 K/mm3 (0.84-5.20); LYMPHOCYTES PERCENT AUTO 13 % (21-46); MONOCYTES ABSOLUTE AUTO 0.51 K/mm3 (0.16-1.47); MONOCYTES PERCENT AUTO 6 % (4-13); Mean Corpuscular HGB 31.3 pg (26.0-34.0); Mean Corpuscular HGB Conc 32.6 g/dL (31.5-36.5); Mean Corpuscular Volume 96 fL (80-100); Mean Platelet Volume 10.3 fL (9.1-12.4); NEUTROPHILS ABSOLUTE AUTO 6.78 K/mm3 (1.96-9.15); NEUTROPHILS PERCENT AUTO 77 % (41-73); Platelet Count 219 K/mm3 (150-400); RDW Coefficient Variation 13.5 % (11.7-14.2); White Blood Cell Count 8.81 K/mm3 (4.00-11.30)
[2021-10-31 08:33] LABS: Albumin, Blood 2.3 g/dL (3.4-5.0); Albumin/Globulin Ratio 0.7 (0.8-1.8); Bilirubin, Total 0.3 mg/dL (0.1-1.0); Bun/Creatinine Ratio 10.3 (12.0-20.0); Calcium, Blood 6.7 mg/dL (8.5-10.1); Creatinine, Blood 0.87 mg/dL (0.40-1.00); Globulin, Blood 3.1 g/dL (2.2-4.0); Magnesium, Blood 1.6 mg/dL (1.6-2.4); Phosphorus, Blood 2.5 mg/dL (2.5-4.9); Potassium, Blood 3.1 mmol/L (3.5-5.5); Total Protein, Blood 5.4 g/dL (6.4-8.2)
--- NOTE | 2021-10-31 09:24 | NUR ---
Am Note Pt alert, oriented to person, surrouding, time (knows current events from this weekend.) Pt assists with repositioning. Pt denies pain, chest pain, dizziness and numb/tingling. Pt tele sinus/junctional bigeminy at 70's bp stable, new order per Dr Angel for Med no tele, tele removed. Ls dim, small amount of fine crackels to bases, spo2 87-88% on 2l o2 via nc, titrated to 3l o2 via nc spo2 >90%, breathing even and unlabored. Pt abd soft, tender, hyperactive bt t/o, pt continues to have loose green stool in attends. Reddness to gluteal clef and coccyx noted, mepilex replaced and barrier cream applied. Other vss. No other acute changes noted. Will continue to monitor.
--- NOTE | 2021-10-31 18:07 | NUR ---
Transfer note Pt continues to have nausea/gagging/emesis with sips and bites of food, md notified. Discussed ng tube with Dr Angel and Dr Turcios, new orders to d/c ng tube. D/c ng tube this evening. Post removal pt tolerating sips of water. Vss. Pt received iv lasix and plans to recceive iv potassium chloride. No other acute changes noted. No s/sx of distress noted. Pt appears less anxious today than yesterday. Updated Lily, daughter of NG tube removal and transfer to room 340. Report given to jessie Ewing assuming care of patient. Pt to room 340 at approx 1757.
--- NOTE | 2021-10-31 18:16 | NUR ---
PATIENT WAS TRANSFERED TO THE MEDICAL FLOOR AROUND 6PM. 3 L 02 NC. ALERT TO SELF. PATIENT HAS A CULLEN CATHETER. SHE HAS A BRIEF FOR STOOL. PATIENT IS RECIEVING IV POTASSIUM CHLORIDE AT THIS TIME, AND A SECOND BAG WILL BE HUNG AT 8PM. (IT IS ON THE COMPUER TRAY IN THE ROOM. THERE IS VANCO IN THE FRIDGE FOR HER. SHE IS PLESANT, BUT CAN BECOME ANXIOUS WHEN ALONE. SHE ATE VERY LITTLE PUREE FOOD FOR DINNER, BUT LOVES THE ENSURE AND IS DRINKING THIS WITHOUT PROBLEM. SHE HAD A NG TUBE THAT HAS BEEN REMOVED. SHE HAD A RECTAL TUBE, ALSO REMOVED. PATEINT HAD A SMALL PERIOD OF ABD PAIN/GAS WHEN SHE CAME TO THE FLOOR BUT IT PASSED AFTER ABOUT 15 SECONDS. SHE HAS HER CALL LIGHT AND IS WATCHING TV. HEARING AIDES IN PLACE (STILL [place]ICKALOON), UPPER DENTURE IN PLACE.
[2021-11-01] MEDS ORDERED: MECL25 PO (02:21)
[2021-11-01] MEDS ORDERED: FAMO20 PO (02:21)
--- NOTE | 2021-11-01 04:30 | NUR ---
AUTOMOTIVE QUALITY MANAGER SUMMARY AWAKE AT INTERVALS FOR FIRSST HALF OF THE SHIFT. VOICED PAIN IN ARM WHERE IVF (k+) WAS INFUSING. IVF OF K+ TOED INTO MAIN LINE OF NS TO DILUTE K+, EFFECTIVE, PT VOICED FEELING BETTER AND HAS BEEN RESTING QUIETLY WITH EFW INTERRUPTIONS SINCE. REMAINS ON ISOLATION PRECAUTIONS FOR COVID AND FOR C DIFF. MEDICATIONS GIVEN ORDERED - SEE MAR FOR DETAILS. CALL LIGHT IN REACH
[2021-11-01 06:16] LABS: Calcium, Blood 6.7 mg/dL (8.5-10.1); Potassium, Blood 3.9 mmol/L (3.5-5.5)
--- NOTE | 2021-11-01 15:59 | NUR ---
PT IS A/OX3, PT IS PLEASANT AND COOPERATIVE. THE PT IS UP WITH ASSIST USEING THE GAIT BELT AND WALKER. TODAY THE PT WAS UP WITH THE PHYSICAL THERAPIST TO THE [facility]. THE PT DID WELL BUT COULD NOT STAND FOR ANY PROLONGED AMOUNT OF TIME. THE PTS APPETITE WAS POOR TODAY, T/O THE DAY. PT WAS GIVEN REGLAN X1. PT TOOK ONLY SMALL BITES T/O THE DAY STATEING THAT SHE DID NOT LIKE THE TASTE, SHE EVEN DECLINED SHERBERT AND ICE CREAM. THE PT DID, HOWEVER, STATE AND DRINK ENSURES. THE PT WAS TITRATED TO 2L/MIN O2 HOWEVER HER O2 SAT'S DROPPED TO THE LOW 80'S AND THE PT'S O2 WAS TITRATED BACK TO 3L/MIN. THE PT WAS GIVEN ATERAX X1 TODAY FOR ANXIETY WHICH SEEMED TO HELP. CALL LIGHT IN REACH. THE PTS SON IS AT THE BEDSIDE AT THIS TIME. WILL CONTINUE TO MONITOR AND ASSESS FOR CHANGES
--- NOTE | 2021-11-02 04:12 | NUR ---
SHIFT SUMMARY NO COMPLAINTS AT THIS TIME. PT WAS VERY ANXIOUS EARLY IN THE SHIFT. SHE WAS MEDICATED WITH TRAZADONE FOR SLEEP AND LATER WITH ATIVAN FOR ANXIETY. PT HAS BEEN RESTING QUIETLY SINCE. PT IS ROSEBUD. PT HAS POWERGLIDE IN R UPPER ARM, WHICH DOES NOT DRAW VERY WELL. PT HAS EXCORIATED AND RED BOTTOM. CREAM AND MEPILEX PLACED. PT WILL TAKE MEDS WHOLE, ONE AT A TIME, WITH CLEAR ENSURES. SHE DOES REFUSE TO TAKE SOME THINGS. PT HAS NO APPETITE AND HAS SPIT MEDS OUT ON PREVIOUS SHIFTS. PT HAS CALL LIGHT WITHIN HER REACH.
--- NOTE | 2021-11-02 19:27 | NUR ---
SHIFT SUMMARY PT VERY SLEEPY THIS SHIFT AND WOULD NOT STAY AWAKE UNTIL THIS EVENING. MOST MEDICATIONS NOT GIVEN DUE TO THE PT UNABLE TO STAY AWAKE TO TAKE THEM. PT RECEVIED ATIVAN THE NIGHT PRIOR AND PER THE PT'S FAMILY SHE HAS NOT SLEPT IN A LONG TIME. PT AWAKENED THIS EVENING AND HER ANXIETY HAS RETURNED. PT ON BED ALARM BUT HAS NOT TRIED TO GET UP THIS SHIFT. PT TO DC TO SNF TOMORROW.
--- NOTE | 2021-11-03 05:50 | NUR ---
SHIFT SUMMARY PATIENT ALERT AND ORIENTED X2. HAD NO COMPLAINTS OF PAIN OR SHORTNESS OF BREATH. NO ACUTE ISSUES NOTED OVERNIGHT. CALL LIGHT WITHIN REACH. REPORT GIVEN TO ONCOMING RN.
[2021-11-03] MEDS ORDERED: Acetaminophen650 M1 PO (12:23)
[2021-11-03] MEDS ORDERED: FURO20 PO (12:24)
[2021-11-03] MEDS ORDERED: BANATROL PLUS1 EAC1 PO (12:24)
[2021-11-03] MEDS ORDERED: HYDHCL25 PO (12:25)
[2021-11-03] MEDS ORDERED: VANCOCIN HCL125 MG PO (12:26)
--- NOTE | 2021-11-03 13:34 | NUR ---
PT DISCHARGED [facility] A/OX3. REPORT GIVEN TO VENTURA CAREY AT [facility]. THE PT WAS TRANSFERED VIA WHEELCHAIR ACCOMPANIED BY [employer]. PT WEARING O2 AT 3L/MIN. BELONGINGS RELEASED TO THE PT
== END 2021-11-03 13:30 | DRG 177 ==
LOC: ER 16:33 → PCU 22:58 → MEDS 10-31 17:51
PROVIDERS: Family Medicine; Hospitalist; Internal Medicine; Student in an Organized Health Care Education/Training Program; ADMIT Internal Medicine
PROC: 8E0ZXY6 Isolation (ICD-10-PCS; 2021-10-23)
PROC: 5A09357 Assistance with Respiratory Ventilation, Less than 24 Consecutive Hours, Continuous Positive Airway Pressure (ICD-10-PCS; principal; 2021-10-24)
PROC: 5A0935A Assistance with Respiratory Ventilation, Less than 24 Consecutive Hours, High Flow/Velocity Cannula (ICD-10-PCS; 2021-10-26)
DX: U07.1 COVID-19 (principal); G92.8 Other toxic encephalopathy; J96.21 Acute and chronic respiratory failure with hypoxia; J96.22 Acute and chronic respiratory failure with hypercapnia; I50.31 Acute diastolic (congestive) heart failure; A04.72 Enterocolitis due to Clostridium difficile, not specified as recurrent; E87.1 Hypo-osmolality and hyponatremia; N39.0 Urinary tract infection, site not specified; E44.0 Moderate protein-calorie malnutrition; Z68.1 Body mass index [BMI] 19.9 or less, adult; I25.10 Atherosclerotic heart disease of native coronary artery without angina pectoris; I11.0 Hypertensive heart disease with heart failure; E83.42 Hypomagnesemia; E83.39 Other disorders of phosphorus metabolism; E87.8 Other disorders of electrolyte and fluid balance, not elsewhere classified; R62.7 Adult failure to thrive; E11.51 Type 2 diabetes mellitus with diabetic peripheral angiopathy without gangrene; J44.9 Chronic obstructive pulmonary disease, unspecified; Z79.811 Long term (current) use of aromatase inhibitors; Z79.51 Long term (current) use of inhaled steroids; Z79.02 Long term (current) use of antithrombotics/antiplatelets; Z79.2 Long term (current) use of antibiotics; Z79.52 Long term (current) use of systemic steroids; Z90.49 Acquired absence of other specified parts of digestive tract; Z95.5 Presence of coronary angioplasty implant and graft; Z95.820 Peripheral vascular angioplasty status with implants and grafts; Z87.891 Personal history of nicotine dependence; Z88.5 Allergy status to narcotic agent; Z91.030 Bee allergy status; Z79.82 Long term (current) use of aspirin; Z79.899 Other long term (current) drug therapy
CPT/HCPCS: 0241U; 36415; 51703; 70450; 71045; 71260; 74177; 80048; 80053; 81001; 82140; 82272; 82803; 82947; 83605; 83735; 84100; 84132; 84484; 85025; 85610; 85730; 86850; 86900; 86901; 87015; 87040; 87045; 87046; 87086; 87205; 87324; 87493; 87899; 92526; 92610; 93005; 93010; 93306; 94660; 94760; 94762; 96374; 96375; 97161; 97530; 99285-25; A9270; C1751; C9113; G0480; J0360; J0696; J1200; J1650; J1885; J1940; J2060; J2405; J2765; J3475; J3480; J7030; J7040; J7060; J7120; P9612; Q9967

== ENCOUNTER → 2021-11-24 | Outpatient (CLI) | payer OTHER ==
[~2021-11-24] MED LIST changes: +Acetaminophen650 M1 PO; +BANATROL PLUS1 EAC1 PO; +FURO20 PO; +HYDHCL25 PO; +MECL25 PO; +VANCOCIN HCL125 MG PO
[2021-11-24 17:37] LABS: Source, Urine Clean Catch
[2021-11-24 18:43] LABS: Appearance, Urine Hazy (Clear); Bilirubin, Urine Neg (Neg); Blood, Urine 1+ (Neg); Color, Urine Yellow (P-Yellow); Glucose Qualitative, Urine Neg (Neg); Ketones, Urine 1+ (Neg); Leukocyte Esterase, Urine Neg (Neg); Nitrite, Urine Neg (Neg); Protein, Urine 1+ (Neg); Specific Gravity, Urine 1.015 (1.003-1.022); Urobilinogen, Urine NORM (Normal)
[2021-11-24 18:58] LABS: Bacteria Few /hpf; Hyaline Casts 0-2 /lpf (0-2); Squamous Epithelial Cells Mod /hpf (Few); Yeast/Fungi Urine Mod /hpf
== END | disposition home or self-care (01) ==
LOC: LAB SHORT 13:59 → LAB 13:59
PROVIDERS: Nurse Practitioner Family
DX: N39.0 Urinary tract infection, site not specified (principal)
CPT/HCPCS: 81001; 87077; 87086; 87186